=== PATIENT | male | born 1935 | race Caucasian/White ===

== ENCOUNTER 2016-10-31 12:03 | Inpatient (IN) | payer OTHER ==
[~2016-10-31] VITALS: Ht 162.6 cm; Wt 73.9 kg
--- NOTE | ~2016-10-31 | HC ---
[facility] [place] [place] [address] CONSULTATION Name: GIA GUDINO Room #: 534-P ADM IN M.R.#: [id number] Admission: 10/31/16 Attend Phys: Jeffrey Crooks MD Discharge: Date of : 36 Report #: [id number] THIS REPORT FOR: //name// CC: Gideon Crooks DATE OF SERVICE: 10/31/2016 SUBJECTIVE: This is an 81-year-old male who was admitted from my podiatry office today for severe tinea infection to his right foot with secondary cellulitis and swelling. He has been seen for the last month as an outpatient. He has failed a 2-week course of oral antifungal and oral antibiotics along with topical Naftin 2% gel and Betadine daily. He presented to my podiatry office today with increased pain and swelling, in addition to moderate malodor. It was recommended the patient be admitted for IV antibiotics and further workup. He agreed with the plan and he does deny fevers and chills at this time. PHYSICAL EXAMINATION: LOWER EXTREMITY: Nonpalpable pulses. Capillary filling time within normal limits. Inspection of skin reveals thin, shiny atrophic skin. NEUROLOGIC: Protective sensation within normal limits. DERMATOLOGIC: The toenails are thickened and dystrophic, but well trimmed at this time. There is significant interdigital tinea to the right interspaces 1-4, with superficial weeping granular wounds, more at the sulcus areas with sub second being the worse. There is no probing, tracking or undermining. The area is macerated with serous drainage. There is now malodor present. No ascending cellulitis. No abscess or fluctuance. MUSCULOSKELETAL: There is pain on palpation to the area of open superficial wounds to all interspaces on the right foot. There are no other breaks in the skin in bilateral feet. There is limited ankle dorsiflexion with knee extended and mildly improved with the knee flexed. Severe collapse of arches scarlett. IMPRESSION: Severe interdigital tinea on the right foot with secondary bacterial infection, and underlying PVD PLAN: Discussed the patient's condition in great detail. He is currently on IV antibiotics and infectious disease is on board. His x-rays obtained here at the hospital today were negative for any abnormality. His ESR and white blood cell count are within normal limits. He is afebrile. He has failed a 2-week course of oral Lamisil in the past and has been applying Naftin gel in the morning and Betadine in the evening and washing his foot gently with soap and water and drying well in the web spaces. Per the patient, he is doing that. A surgical shoe was ordered at the bedside, as he refused to wear one in the past. [address] [address] CONSULTATION Name: SHAHABGUALBERTORENATE HELLER Room #: 534-P ADM IN M.R.#: [id number] Admission: 10/31/16 Attend Phys: Jeffrey Crooks MD Discharge: Date of : 36 Report #: [id number] Vascular studies were also ordered to r/o underlying disease. I answered all his questions and concerns. <ELECTRONICALLY SIGNED> By: Eli Marie DPM 11/01/16 1309 0808 0918 Eli Marie DPM /nt
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
[~2016-10-31 12:03] MED LIST: AMLODIPINE BESY10 MG PO; ANTIVERT25 MG PO; ASPIR 8181 MG PO; BYSTOLIC 5 MG5 M1 PO; IBUPROFEN 600600 M1 PO; LISINOPRIL-HCT1 EACH PO; PRINIVIL20 M1 PO; TOPROL XL25 MG PO; TOPROL XL50 MG PO
[2016-10-31 19:22] VITALS: BP 129/64
[2016-10-31 20:10] LABS: HEMATOCRIT 46.1 % (42.0-52.0); HEMOGLOBIN 15.3 gm/dL (14.0-18.0); MCH 31.8 pg (26.0-34.0); MCHC 33.2 % (28.0-37.0); MCV 95.7 fL (80.0-100.0); RBC 4.82 mil/uL (4.50-6.00); RDW 12.4 % (10.5-14.5); WBC 5.6 thou/uL (4.0-11.0)
[2016-10-31 20:16] LABS: CALCIUM 9.2 mg/dL (8.5-10.1); CREATININE 0.9 mg/dL (0.6-1.3); POTASSIUM 3.5 mmol/L (3.5-5.1)
[2016-11-01 04:09] LABS: HEMATOCRIT 42.5 % (42.0-52.0); HEMOGLOBIN 14.1 gm/dL (14.0-18.0); MCH 31.7 pg (26.0-34.0); MCHC 33.2 % (28.0-37.0); MCV 95.6 fL (80.0-100.0); RBC 4.44 mil/uL (4.50-6.00); RDW 12.9 % (10.5-14.5); WBC 5.1 thou/uL (4.0-11.0)
[2016-11-01 04:25] VITALS: BP 130/66
[2016-11-01 04:25] LABS: CALCIUM 8.8 mg/dL (8.5-10.1); CREATININE 0.8 mg/dL (0.6-1.3); POTASSIUM 3.3 mmol/L (3.5-5.1)
[2016-11-01 07:23] VITALS: BP 149/68
[2016-11-01 16:28] VITALS: BP 150/68
[2016-11-01 19:06] VITALS: BP 160/82
[2016-11-01 19:13] LABS: INR 1.1; PROTIME 11.5 Seconds (9.3-11.4)
[2016-11-02 00:11] VITALS: BP 162/74
[2016-11-02 04:22] VITALS: BP 169/89
[2016-11-02 05:47] LABS: HEMATOCRIT 46.2 % (42.0-52.0); HEMOGLOBIN 15.1 gm/dL (14.0-18.0); MCH 31.7 pg (26.0-34.0); MCHC 32.7 % (28.0-37.0); RBC 4.76 mil/uL (4.50-6.00); RDW 12.9 % (10.5-14.5); WBC 5.5 thou/uL (4.0-11.0)
[2016-11-02 05:58] LABS: CALCIUM 8.9 mg/dL (8.5-10.1); CREATININE 0.8 mg/dL (0.6-1.3); POTASSIUM 3.6 mmol/L (3.5-5.1)
[2016-11-02 07:25] VITALS: BP 175/89
[2016-11-02 08:49] VITALS: BP 175/89
[2016-11-02 15:46] VITALS: BP 169/87
[2016-11-02 19:06] VITALS: BP 134/82
[2016-11-03 04:22] VITALS: BP 146/67
[2016-11-03 08:00] VITALS: BP 150/90
[2016-11-03 16:00] VITALS: BP 141/72
[2016-11-03 20:30] VITALS: BP 135/70
[2016-11-04 04:30] VITALS: BP 164/87
[2016-11-04 08:00] VITALS: BP 144/80
[2016-11-04 12:00] VITALS: BP 165/79
[2016-11-04 15:05] LABS: HEMATOCRIT 41.3 % (42.0-52.0); HEMOGLOBIN 13.9 gm/dL (14.0-18.0); MCH 32.1 pg (26.0-34.0); MCHC 33.6 % (28.0-37.0); MCV 95.7 fL (80.0-100.0); RBC 4.32 mil/uL (4.50-6.00); RDW 13.1 % (10.5-14.5); WBC 6.1 thou/uL (4.0-11.0)
[2016-11-04 15:14] LABS: CALCIUM 8.4 mg/dL (8.5-10.1); CREATININE 0.9 mg/dL (0.6-1.3); POTASSIUM 3.4 mmol/L (3.5-5.1)
[2016-11-04 16:00] VITALS: BP 138/50
[2016-11-04 20:45] VITALS: BP 141/59
[2016-11-05 03:30] VITALS: BP 143/93
[2016-11-05 05:49] LABS: HEMATOCRIT 39.9 % (42.0-52.0); HEMOGLOBIN 12.9 gm/dL (14.0-18.0); MCH 31.5 pg (26.0-34.0); MCHC 32.5 % (28.0-37.0); MCV 97.1 fL (80.0-100.0); RBC 4.11 mil/uL (4.50-6.00); RDW 12.8 % (10.5-14.5); WBC 6.4 thou/uL (4.0-11.0)
[2016-11-05 06:10] LABS: CALCIUM 8.1 mg/dL (8.5-10.1); CREATININE 0.7 mg/dL (0.6-1.3); POTASSIUM 3.3 mmol/L (3.5-5.1)
[2016-11-05 08:58] VITALS: BP 163/78
[2016-11-05 12:44] VITALS: BP 135/70
[2016-11-05 17:16] VITALS: BP 147/71
[2016-11-05 20:20] VITALS: BP 147/71
[2016-11-06] VITALS (7 sets, daily range): BP systolic 117–152; BP diastolic 54–79
[2016-11-06] MEDS ORDERED: CIPRO250 M1 PO (13:32)
[2016-11-06] MEDS ORDERED: FLAGYL500 MG PO (13:33)
[2016-11-06] MEDS ORDERED: VANCOMYCIN100 MG/ML PO (13:34)
[2016-11-06] MEDS ORDERED: FLOMAX0.4 MG PO (13:34)
[2016-11-06] MEDS ORDERED: CLOPIDOGREL75 MG PO (13:34)
== END 2016-11-06 18:59 | disposition home or self-care (01) | DRG 253 ==
LOC: 5S 12:03 → 4S 11-02 17:22
PROVIDERS: Hospitalist; Radiology Diagnostic Radiology
PROC: 047M3ZZ Dilation of Right Popliteal Artery, Percutaneous Approach (ICD-10-PCS; principal; 2016-11-02)
PROC: 047K341 Dilation of Right Femoral Artery with Drug-eluting Intraluminal Device, using Drug-Coated Balloon, Percutaneous Approach (ICD-10-PCS; 2016-11-02)
DX: I70.8 Atherosclerosis of other arteries (principal); L03.115 Cellulitis of right lower limb; A04.7 Enterocolitis due to Clostridium difficile; B35.3 Tinea pedis; Z96.651 Presence of right artificial knee joint; Z96.641 Presence of right artificial hip joint; I10 Essential (primary) hypertension; M19.90 Unspecified osteoarthritis, unspecified site; B35.8 Other dermatophytoses; Z79.899 Other long term (current) drug therapy; Z79.82 Long term (current) use of aspirin; Z82.49 Family history of ischemic heart disease and other diseases of the circulatory system; Z80.9 Family history of malignant neoplasm, unspecified; Z79.2 Long term (current) use of antibiotics
CPT/HCPCS: 10100; 10785

== ENCOUNTER 2017-10-21 16:15 | Emergency (ER) | payer OTHER ==
[~2017-10-21] VITALS: Ht 167.6 cm; Wt 72.6 kg
[~2017-10-21 16:15] MED LIST changes: +CIPRO250 M1 PO; +CLOPIDOGREL75 MG PO; +FLAGYL500 MG PO; +FLOMAX0.4 MG PO; +VANCOMYCIN100 MG/ML PO
[2017-10-21] MEDS ORDERED: LIPITOR10 MG PO (16:23)
[2017-10-21] MEDS ORDERED: VALIUM5 MG PO (16:47)
[2017-10-21] MEDS ORDERED: NAPROSYN500 MG PO (16:47)
[2017-10-21] MEDS ORDERED: LIDODERM1 EACH TRANSDERM (17:05)
== END 2017-10-21 17:43 | disposition home or self-care (01) ==
LOC: ER 16:15
DX: M43.6 Torticollis (principal); M54.2 Cervicalgia; I10 Essential (primary) hypertension; M19.90 Unspecified osteoarthritis, unspecified site; Z98.890 Other specified postprocedural states

== ENCOUNTER → 2018-08-19 | Outpatient (CLI) | payer OTHER ==
[~2018-08-19] MED LIST changes: +ACCUPRIL40 MG PO; +AMBIEN 5 MG TABL5 MG PO; +BISACODYL SUPP10 MG RECTAL; +DEXAMETHASO0.1 MG/M1 IV PUSH; +DOCUSATE SENNA PO; +DOCUSOL PLUS M1 EACH RECTAL; +FINASTERIDE5 MG PO; +HYDRALAZINE 10M10 MG PO; +HYDROCODONE-AP1 EAC6 PO; +LIDODERM1 EACH TRANSDERM; +LIPITOR10 MG PO; +LORAZEPAM 22 MG/1 ML IV PUSH; +MAALOX MAXIMUM355 ML PO; +MILK OF MA2400 MG/10 PO; +MIRALAX17 GM PO; +NAPROSYN500 MG PO; +NITROSTAT0.4 MG SUBLING; +ONDANSETRON HCL4 M1 IV PUSH; +TYLENOL325 MG PO; +VALIUM5 MG PO
== END ==
LOC: HYPER 08-13 16:41
DX: L89.153 Pressure ulcer of sacral region, stage 3 (principal); S81.802A Unspecified open wound, left lower leg, initial encounter; E78.5 Hyperlipidemia, unspecified; E78.00 Pure hypercholesterolemia, unspecified; I87.2 Venous insufficiency (chronic) (peripheral); I73.9 Peripheral vascular disease, unspecified; I10 Essential (primary) hypertension; G47.33 Obstructive sleep apnea (adult) (pediatric); G82.20 Paraplegia, unspecified; M48.00 Spinal stenosis, site unspecified; M19.90 Unspecified osteoarthritis, unspecified site; Z86.718 Personal history of other venous thrombosis and embolism; Z98.49 Cataract extraction status, unspecified eye; Z96.698 Presence of other orthopedic joint implants; Z86.73 Personal history of transient ischemic attack (TIA), and cerebral infarction without residual deficits; X58.XXXA Exposure to other specified factors, initial encounter; Y93.89 Activity, other specified; Y92.89 Other specified places as the place of occurrence of the external cause; Y99.8 Other external cause status

== ENCOUNTER 2018-09-02 16:01 | Inpatient (IN) | payer OTHER ==
[~2018-09-02] VITALS: Ht 165.1 cm; Wt 77.1 kg
--- NOTE | ~2018-09-02 | 2DMMODE ---
[facility] [place] [address] 2 D/M-MODE ECHOCARDIOGRAM Name: SHAHABGIA HELLER Room #: 426-P ADM IN M.R.#: [id number] Admission: 09/02/18 Attend Phys: Nisha Bustillo Discharge: Date of : 36 Date of Service: 09/08/18 1528 Report #: [id number] THIS REPORT FOR: //name// APPROVED REPORT Study performed: 09/08/2018 14:41:56 EXAM: Comprehensive 2D, Doppler, and color-flow Echocardiogram Patient Location: Bedside Room #: 426 Status: routine BSA: 1.85 HR: 70 bpm BP: 141/63 mmHg Rhythm: NSR Other Information Study Quality: Adequate Indications Leg edema. Hx: CAD, PAD, tachycardia, CVA, HTN, DM. 2D Dimensions RVDd: 33.61 mm IVSd: 10.68 (7-11mm) LVOT Diam: 20.68 (18-24mm) LVDd: 43.74 mm PWd: 10.94 (7-11mm) LVDs: 28.44 (25-40mm) Aortic Root: 32.63 mm Volumes Left Atrial Volume (Systole) Single Plane 4CH: 54.66 mL Single Plane 2CH: 57.96 mL LA ESV Index: 32.00 mL/m2 Aortic Valve AoV Peak Josh.: 2.02 m/s AO Peak Gr.: 16.28 mmHg LVOT Max P.99 mmHg LVOT Max V: 1.50 m/s IVETH Vmax: 2.50 cm2 Mitral Valve E/A Ratio: 0.7 MV Decel. Time: 224.71 ms MV E Max Josh.: 0.89 m/s [facility] [place] [address] 2 D/M-MODE ECHOCARDIOGRAM Name: SHAHABGIA ROCIADA Room #: 426-[facility] IN .R.#: [id number] Admission: 09/02/18 Attend Phys: Nisha Bustillo Discharge: Date of : 36 Date of Service: 09/08/18 1528 Report #: [id number] MV A Josh.: 1.23 m/s MV PHT: 65.16 ms IVRT: 69.20 ms Pulmonary Valve PV Peak Josh.: 1.08 m/s PV Peak Gr.: 4.63 mmHg Pulmonary Vein P Vein S: 0.81 m/s P Vein A: 0.44 m/s P Vein D: 0.53 m/s P Vein A Dur.: 138.4 msec P Vein S/D Ratio: 1.53 Tricuspid Valve TR Peak Josh.: 3.40 m/s RAP Estimate: 5.00 mmHg TR Peak Gr.: 46.25 mmHg Left Ventricle The left ventricle is normal size. There is normal LV segmental wall motion. Borderline concentric left ventricular hypertrophy. Left ventricular systolic function is normal. LVEF is 60-65%. Mild diastolic dysfunction is present (impaired relaxation pattern). Right Ventricle The right ventricle is normal size. The right ventricular systolic function is normal. Atria The left atrium size is normal. The right atrium size is normal. Aortic Valve Aortic valve leaflets are mildly thickened and calcified. Trace aortic regurgitation. There is no aortic valvular stenosis. Mitral Valve Mitral valve leaflets are mildly thickened. Mild to moderate mitral annular calcification. Trace to mild mitral regurgitation. No evidence of mitral valve stenosis. Tricuspid Valve The tricuspid valve is normal in structure. Mild tricuspid regurgitation. Estimated PAP is 50-55mmHg. Pulmonic Valve Pulmonic valve is not well visualized. Trace pulmonic [address] [address] 2 D/M-MODE ECHOCARDIOGRAM Name: SHAHABGUALBERTORENATE HELLER Room #: 426-P [facility] IN M.R.#: [id number] Admission: 09/02/18 Attend Phys: Nisha Bustillo Discharge: Date of : 36 Date of Service: 09/08/18 1528 Report #: [id number] regurgitation. Great Vessels The aortic root is normal in size. Ascending aorta is not well visualized. IVC is normal in size and collapses >50% with inspiration. Pericardium There is no pericardial effusion. <Conclusion> The left ventricle is normal size. Left ventricular systolic function is normal. Mild diastolic dysfunction is present (impaired relaxation pattern). The right ventricle is normal size. The left atrium size is normal. Aortic valve leaflets are mildly thickened and calcified. Trace aortic regurgitation. Trace to mild mitral regurgitation. Mild tricuspid regurgitation. Estimated PAP is 50-55mmHg. There is no pericardial effusion. <ELECTRONICALLY SIGNED> By: Xu Daniels MD 09/08/18 1528 1528 1528 Xu Daniels MD /INF
--- NOTE | ~2018-09-02 | PATH ---
[facility] [address] [place] [address] PATHOLOGY RPT PROCEDURE Name: GIA CHRISTIAN Room #: 426-P ADM IN M.R.#: [id number] Admission: 09/02/18 Date of : 36 Discharge: Report #: [id number] Path Case #: [id number] [facility] Accession Number: [id number] . 01 Material submitted: . PART A: SACRAL TISSUE PART B: DEEP SACRAL TISSUE . 01 Clinical history: . Sacral wound. . 02 Diagnosis: A. Sacral tissue, debridement: - Ulceration, gangrenous necrosis and marked acute inflammation, consistent with wound. . B. Deep sacral tissue, debridement: - Fragments of bone and fibrous tissue with acute inflammation, consistent with wound. . (IUV:mml; 09/08/18) QLM/09/08/2018 . 02 Electronically signed: . Elly Monsivais MD, Pathologist NPI- [id number] . 01 Gross description: . A. Received in formalin labeled "Gia Christian, sacral tissue" is a chu-white irregular portion of skin and underlying yellow-chu lobulated fibroadipose tissue which measures 7.7 x 6.7 x 1.6 cm. The skin surface displays a ellis-chu ulcerated lesion measuring 7.2 x 5.2 cm. Upon sectioning, the lesion has a greatest dimension of 1.7 cm, and extends to the deep surface. A lifeline representatives section is submitted in cassette A1. . B. Received in formalin labeled "Gino, Gia, deep sacral tissue" is a 2.6 x 1.8 x 0.6 cm aggregate of red-brown hemorrhagic soft tissue fragments. The specimen is submitted entirely in cassette B1. ([facility]; 09/07/2018) SY/SY . 02 Pathologist provided ICD-10: L89.159, I96 . 02 CPT . 295594, 949581 Specimen Comment: A courtesy [place] [address] PATHOLOGY RPT PROCEDURE Name: GIA CHRISTIAN ROANOKE Room #: 426-P [facility] IN M.R.#: [id number] Admission: 09/02/18 Date of : 36 Discharge: Report #: [id number] Path Case #: [id number] Specimen Comment: [phone], , , . Specimen Comment: Report sent to ,DR LEIVA,DR DALAL Specimen Comment: DR MANCINI Specimen Comment: A duplicate report has been generated due to demographic updates. Performed at: [address], [place] [id number] MD Serge Garza MD Phone: [phone] Performed at: [address] [id number] MD Elly Monsivais MD Phone: [phone]
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
--- NOTE | ~2018-09-02 | HC ---
[facility] [place] [address] CONSULTATION Name: GIA GUDINO Room #: 426-P ADM IN M.R.#: [id number] Admission: 09/02/18 Attend Phys: Nisha Hernandez Discharge: Date of : 36 Report #: [id number] THIS REPORT FOR: //name// CC: Nisha Ignacio Sam Camaras DATE OF SERVICE: 09/03/2018 CHIEF COMPLAINT: Sacral ulcer and left lower extremity ulceration. HISTORY OF PRESENT ILLNESS: This is an 82-year-old black male patient who is admitted to the hospital from the wound clinic with worsening gluteal ulceration as well as left lower extremity ulceration. The patient has recent paraplegia secondary to a previous spinal stroke. The patient's is very interested in having him transferred at some point with [facility] in [place], [place]. The patient denies pain at this time. PAST MEDICAL HISTORY: Positive for hypertension, right knee replacement, left hip replacement, right foot surgical repair, left radius repair, arthritis, peripheral arterial disease. FAMILY HISTORY: Positive for hypertension and cancer. SOCIAL HISTORY: Negative for alcohol, tobacco or drug use. MEDICATIONS: Include Flomax, Apresoline, Nitrostat, Topral XL, Accupril, aspirin, [place], Tylenol, Ativan, Ambien, Dulcolax suppositories, MiraLax, ondansetron. ALLERGIES: None. REVIEW OF SYSTEMS: CONSTITUTIONAL: Denies fever, chills or weight loss. NEUROLOGICAL: The patient has functional paraplegia following previous spinal stroke. ENT: The patient denies earache, nasal drainage or sore throat. EYES: The patient denies visual changes, redness or drainage. PULMONARY: No cough, shortness of breath. GASTROINTESTINAL: The patient denies nausea, vomiting, diarrhea or abdominal pain. CARDIOVASCULAR: The patient denies chest pain, palpitations, or diaphoresis. ORTHOPEDIC: The patient does have ulceration of his left leg. He also has sacral ulceration. Other systems in the 14-point review of systems are negative. [facility] [address] [place] [address] CONSULTATION Name: SHAHABGUALBERTORENATE HELLER Room #: 426-P [facility] IN M.R.#: [id number] Admission: 09/02/18 Attend Phys: Nisha Hernandez Discharge: Date of : 36 Report #: [id number] PHYSICAL EXAMINATION: VITAL SIGNS: At this time include pulse 73, respiration 16, blood pressure 141/60, temperature 98.1. GENERAL: This is a chronically ill-appearing male patient who appears to be in no distress. HEENT: Head is normocephalic. Nose and throat clear. NECK: Supple. LUNGS: Clear. HEART: Regular rate and rhythm. ABDOMEN: Soft, bowel sounds present. EXTREMITIES: Examination of the sacral region demonstrates an unstageable pressure ulcer in the sacral region, is not overtly infected. There is moderate fibrinous material and a little bit eschar present. No exposed deep structures noted at this time. Lower extremities demonstrate a circular ulceration of the left leg, lateral lower leg with dry stable eschar. Distal pulses are difficult to palpate. NEUROLOGIC: The patient is alert, does move his upper extremities, is not able to move lower extremities. LABORATORY DATA: Sodium 143, potassium 3.7, chloride 103, CO2 35, BUN 35, creatinine 1.1, glucose 109, total protein 4.9, albumin is 1.7. White blood cell count is 8.7 with hemoglobin of 9.9. CLINICAL IMPRESSION: 1. Unstageable pressure ulcer of the sacral gluteal region. 2. 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 3. Severe peripheral arterial disease. 4. Moderate protein calorie malnutrition. Prealbumin is 1.7. The patient's albumin is 1.7. PLAN: The patient will need surgical debridement of the sacrum. We will consult Surgery for this. We will recommend Betadine and adhesive film to the left lower leg. We will consult Interventional Radiology for possible percutaneous intervention and left lower extremity occlusive disease. We will need to maximize his nutrition to maximize wound healing. We will discuss with case management, possible referral to [facility] in [place], [place]. I appreciate being asked to see him in consultation. <ELECTRONICALLY SIGNED> By: Peng Bailey MD 09/10/18 0816 1821 [id number] Peng Bailey MD /nt
--- NOTE | ~2018-09-02 | HC ---
[facility] [place] [address] CONSULTATION Name: GIA GUDINO Room #: 426-P ADM IN M.R.#: [id number] Admission: 09/02/18 Attend Phys: Nisha Hernandez Discharge: Date of : 36 Report #: [id number] THIS REPORT FOR: //name// CC: Nisha Chase DATE OF SERVICE: 09/03/2018 TYPE OF REPORT: Infectious diseases consultation. REASON FOR CONSULTATION: I was asked to evaluate concerning sacral wound infection. HISTORY OF PRESENT ILLNESS: The patient is an 82-year old with underlying hypertension, peripheral vascular disease and spinal stenosis; who was seen back in May with acute myelitis, felt related to ischemia. He has remained paraplegic. He has a neurogenic bladder. He has been incontinent. Has followed up with Urology but still has not solved the issue. He has been hospitalized and then sent to rehabilitation. He did get home with his about a month ago. It is noted that he had a small wound to his sacrum during his rehabilitation stay. This acutely worsened over the last several weeks.he also developed left posterior calf with failure to improve. Evaluation in the wound care center noted extensive wounds, unable to be managed in the outpatient clinic and was hospitalized. No fever, chills or sweats. A small amount of drainage has been noted. He is incontinent of bladder and bowel. Has had no abdominal pain or pelvic pain. The patient was a poor historian, but his was able to fill in the details. REVIEW OF SYSTEMS: CONSTITUTIONAL: Notes no constitutional issues. SKIN: No other rash noted. HEENT AND NECK: No adenopathy. No change in vision. No change in hearing. PULMONARY: Negative. CARDIOVASCULAR: Negative. GASTROINTESTINAL: As above. GENITOURINARY: As above. MUSCULOSKELETAL: Unremarkable. NEUROLOGICAL: As above. PSYCHIATRIC: Unremarkable. ALLERGIES: None. MEDICATIONS: As noted on his DEC, now including vancomycin and meropenem. [facility] [address] [place] [address] CONSULTATION Name: GIA GUDINO Room #: [address] [place] [address] IN M.R.#: [id number] Admission: 09/02/18 Attend Phys: Nisha Hernandez Discharge: Date of : 36 Report #: [id number] FAMILY HISTORY: Cancer and hypertension. SOCIAL HISTORY: Nonsmoker. No significant alcohol intake. PAST MEDICAL HISTORY: Coronary artery disease, hypertension, peripheral vascular disease, venous insufficiency, right total knee arthroplasty, right ankle surgery, right total hip arthroplasty, left radius ORIF and degenerative arthritis. PHYSICAL EXAMINATION: GENERAL: The patient was afebrile and hemodynamically stable. He was alert, cooperative and appeared his stated age. HEENT: No conjunctivitis or scleral icterus. Mouth without mucositis or lesion. NECK: Supple with no thyromegaly, mass or JVD. SKIN: Without rash, otherwise, with an extensive sacral wound with fibrillation necrosis identified. Small amount of drainage. Some surrounding erythema. No definite fluctuance.wound also involving the posterior left calf. LYMPHATIC: No palpable adenopathy. LUNGS: Clear anterior posteriorly with no adventitial sounds. HEART: Regular, without murmur, gallop or rub. ABDOMEN: Soft and nontender. No hepatosplenomegaly or mass. GENITOURINARY: External genitalia unremarkable with no mass or lesion. He has an indwelling Barrera catheter. RECTAL: Not performed. EXTREMITIES: No peripheral edema. He had no cyanosis. BACK: No spinal tenderness or CVA tenderness. NEUROLOGICAL: Cranial nerves intact. Deep tendon reflexes were absent in the lower extremities. He was flaccid in the lower extremities. LABORATORY STUDIES: Hemoglobin 12.6; WBC 9.4 and platelet count 209,000. Sodium 143, potassium 3.7, bicarbonate 35 and creatinine 1.1. Lactate 1.3. Blood cultures are pending. IMPRESSION: 1. Paraplegic with sacral and calf wound and subsequent infection. 2. Paraplegia was secondary to ischemic insult to the spine, 3. Underlying hypertension. 4. Neurogenic bowel and bladder. RECOMMENDATION: Continue indwelling Barrera catheter to control his urine flow. Continue with wound care. We will need surgical debridement to his sacrum. At that time, we would obtain tissue cultures. We will continue IV antibiotic therapy pending such. arterial studies, angiogram to further evaluate the lower extremities. Continue offloading. MRSA screen. Depending upon the [address] [address] CONSULTATION Name: SHAHABGIA ARRON Room #: 426-P [facility] IN M.R.#: [id number] Admission: 09/02/18 Attend Phys: Nisha Hernandez Discharge: Date of : 36 Report #: [id number] extent of his debridement, may need further imaging of his pelvis. I have discussed the case with the patient's at the bedside. <ELECTRONICALLY SIGNED> By: Jin Hensley MD 09/04/18 2319 1603 2326 Jin Hensley MD /nt
--- NOTE | ~2018-09-02 | CATHLAB ---
[facility] [place] [address] INVASIVE PROCEDURE REPORT Name: GIA GUDINO Room #: 426-P ADM IN .R.#: [id number] Admission: 09/02/18 Attend Phys: Nisha Bustillo Discharge: Date of : 36 Date of Service: 09/04/18 1658 Report #: [id number] THIS REPORT FOR: //name// APPROVED REPORT Study performed: 09/04/2018 15:17:33 Patient Details The patient is a 82 year-old male Event Personnel CHELSY HARRIS MD, MERI ROSARIO RN, SHAHAB STRICKLAND Procedures Performed Left Heart Cath w/or w/o Coronaries [id number] [facility] [address] Initial Mod Sed Same Phys/QHP Gr5y [id number] 36402 Mod Sed Same Phys/QHP Ea [id number] Indication Arrhythmia, Dyspnea Risk Factors Peripheral Vascular Disease, Physical Activity, Hypertension Procedure Narrative A 6F sheath was inserted into the RFA. Coronary angiography was performed using coronary diagnostic catheters. The right coronary system was accessed and visualized with a 3 DRC catheter. The left coronary system was accessed and visualized with a JL 4 catheter. The left ventricle was accessed and visualized with a JR4 catheter. Pre-demployment femoral angiogram was performed . Closure device was deployed with a 6F Fr MYNX. The patient tolerated the procedure well and there were no complications associated with the procedure. There was no hematoma. Intraoperative Conscious Sedation Fentanyl mcg Versed mg Fluoro Time: 4.26 minutes Dose: DAP 3834.48 cGycm2 427 mGy Contrast Type and Amount: OMNI 35ML Coronary Angiography [place] [address] [place] [address] INVASIVE PROCEDURE REPORT Name: GIA GUDINO Room #: 426-P [facility] IN .R.#: [id number] Admission: 09/02/18 Attend Phys: Nisha Bustillo Discharge: Date of : 36 Date of Service: 09/04/18 1658 Report #: [id number] The patient's coronary anatomy is co- dominant. Diagnostic Cath Left Main patent vessel, with no flow-limiting lesions. LAD This is a moderate size caliber vessel, traveling down the anterior wall and wrapping around the apex. There is a mild to moderate stenosis in the mid segment, 40%. Diagonal 1 Patent vessel, with no flow-limiting lesions. Circumflex Codominant vessel, with no flow-limiting lesions. OM1 Patent vessel, with no flow-limiting lesions. OM2 There is a moderate stenosis in the proximal segment, 50%. Right Coronary There is mild diffuse disease in the mid segment, 30%. R PDA Patent vessel, with no flow-limiting lesions. Left Ventriculography Left Ventriculography was not performed. An LVEDP was measured and there is no gradient across the outflow tract. Hemodynamics The aortic pressure is 152/65 mmHg with a mean of 92 mmHg. The left ventricular pressure is 139/2 mmHg with a mean of mmHg. The left ventricular end diastolic pressure is 28 mmHg. PCI Technique Lesion Percutaneous coronary intervention was performed on the Unspecified. Conclusion 1. Mild to moderate coronary artery disease. 2. Codominant system. 3. Recommend aggressive risk factor management. <ELECTRONICALLY SIGNED> By: Chelsy Harris MD 09/04/188 57 57 Chelsy Harris MD /INF
[2018-09-02 16:25] VITALS: BP 114/55
[2018-09-02 17:34] LABS: ABSOLUTE NEUTROPHILS 5.9 thou/uL (1.4-8.2); BASOPHILS 1.1 % (0.0-2.0); EOSINOPHILS 5.1 % (0.0-3.0); HEMATOCRIT 37.5 % (42.0-52.0); HEMOGLOBIN 12.6 gm/dL (14.0-18.0); LYMPHOCYTES 19.9 % (24.0-44.0); MCH 30.7 pg (26.0-34.0); MCHC 33.7 g/dL (28.0-37.0); MCV 91.1 fL (80.0-100.0); MONOCYTES 11.6 % (1.0-8.0); PLATELET COUNT 209 thou/uL (150-400); POLYS 62.3 % (36.0-66.0); RBC 4.11 mil/uL (4.50-6.00); RDW 15.2 % (10.5-14.5); WBC 9.4 thou/uL (4.0-11.0)
[2018-09-02 17:43] LABS: CALCIUM 9.7 mg/dL (8.5-10.1); CREATININE 1.1 mg/dL (0.7-1.3); POTASSIUM 3.7 mmol/L (3.5-5.1)
[2018-09-02 18:24] VITALS: BP 121/62
[2018-09-02 19:16] VITALS: BP 132/80
[2018-09-02 19:44] LABS: LARGE PLATELETS FEW
[2018-09-02 19:45] VITALS: BP 132/59
[2018-09-03 04:30] VITALS: BP 100/46
[2018-09-03 19:49] VITALS: BP 115/39
[2018-09-04 05:37] VITALS: BP 131/65
[2018-09-04 07:50] VITALS: BP 107/48
[2018-09-04 11:33] LABS: CREATININE 0.9 mg/dL (0.7-1.3); POTASSIUM 3.9 mmol/L (3.5-5.1)
[2018-09-04 13:08] VITALS: BP 107/48
[2018-09-04 16:47] VITALS: BP 135/59
[2018-09-04 20:00] VITALS: BP 117/50
[2018-09-05] VITALS (8 sets, daily range): BP systolic 87–120; BP diastolic 44–55
[2018-09-05 05:09] LABS: HEMATOCRIT 30.1 % (42.0-52.0); MCH 30.3 pg (26.0-34.0); MCHC 33.1 g/dL (28.0-37.0); MCV 91.8 fL (80.0-100.0); RBC 3.28 mil/uL (4.50-6.00); RDW 15.1 % (10.5-14.5); WBC 8.7 thou/uL (4.0-11.0)
[2018-09-05 05:10] LABS: HEMOGLOBIN 9.9 gm/dL (14.0-18.0)
[2018-09-05 05:22] LABS: CALCIUM 8.5 mg/dL (8.5-10.1); CREATININE 0.8 mg/dL (0.7-1.3); POTASSIUM 4.1 mmol/L (3.5-5.1)
[2018-09-05 06:00] LABS: FOLIC ACID 15.5 ng/mL (8.6-58.9)
[2018-09-05 09:40] LABS: CHOLESTEROL 108 mg/dL (<200); HDL CHOLESTEROL 31 mg/dL (>40); LDL CHOLESTEROL 68 mg/dL (<100); TC:HDL 3.5 Ratio (Not establshd); TRIGLYCERIDE 46 mg/dL (<150); VLDL 9 mg/dL (<40)
[2018-09-05 19:08] LABS: HEMOGLOBIN 10.4 gm/dL (14.0-18.0)
[2018-09-06 05:00] VITALS: BP 89/41
[2018-09-06 07:36] VITALS: BP 101/50
[2018-09-06 19:30] VITALS: BP 99/49
[2018-09-07 03:37] VITALS: BP 134/57
[2018-09-07 07:15] VITALS: BP 148/66
[2018-09-07 17:07] VITALS: BP 134/57
[2018-09-07 20:16] VITALS: BP 149/65
[2018-09-08 03:25] VITALS: BP 146/65
[2018-09-08 06:02] LABS: HEMATOCRIT 27.2 % (42.0-52.0); HEMOGLOBIN 9.1 gm/dL (14.0-18.0); MCH 30.6 pg (26.0-34.0); MCHC 33.6 g/dL (28.0-37.0); MCV 91.2 fL (80.0-100.0); PLATELET COUNT 166 thou/uL (150-400); RBC 2.98 mil/uL (4.50-6.00); RDW 14.8 % (10.5-14.5); WBC 10.2 thou/uL (4.0-11.0)
[2018-09-08 06:18] LABS: ALBUMIN 1.7 g/dL (3.4-5.0); CALCIUM 8.6 mg/dL (8.5-10.1); CREATININE 0.8 mg/dL (0.7-1.3); POTASSIUM 3.9 mmol/L (3.5-5.1); TOTAL BILIRUBIN 0.3 mg/dL (<0.1-1.0); TOTAL PROTEIN 4.9 g/dL (6.4-8.2)
[2018-09-08 07:26] LABS: ABSOLUTE NEUTROPHILS 6.8 thou/uL (1.4-8.2)
[2018-09-08 07:52] VITALS: BP 141/63
[2018-09-08 20:59] VITALS: BP 144/64
[2018-09-08 21:16] VITALS: BP 144/64
[2018-09-09 05:16] VITALS: BP 135/62
[2018-09-09 07:45] VITALS: BP 171/91
[2018-09-09 09:54] VITALS: BP 171/91
[2018-09-09 15:30] VITALS: BP 151/78
[2018-09-09 19:20] VITALS: BP 166/80
[2018-09-10 04:00] VITALS: BP 148/82
[2018-09-10 06:46] LABS: HEMOGLOBIN 8.5 gm/dL (14.0-18.0); MCHC 34.1 g/dL (28.0-37.0); PLATELET COUNT 163 thou/uL (150-400); RBC 2.74 mil/uL (4.50-6.00); RDW 15.1 % (10.5-14.5); WBC 10.1 thou/uL (4.0-11.0)
[2018-09-10 06:56] LABS: CALCIUM 8.2 mg/dL (8.5-10.1); CREATININE 0.8 mg/dL (0.7-1.3); POTASSIUM 3.7 mmol/L (3.5-5.1)
[2018-09-10 07:37] LABS: ABSOLUTE NEUTROPHILS 6.7 thou/uL (1.4-8.2); ANISOCYTOSIS 1+
[2018-09-10 08:20] VITALS: BP 144/65
[2018-09-10 16:45] VITALS: BP 143/61
[2018-09-10 19:22] VITALS: BP 172/73
[2018-09-11 00:10] VITALS: BP 141/61
[2018-09-11 04:34] VITALS: BP 157/67
[2018-09-11 05:54] LABS: HEMATOCRIT 26.3 % (42.0-52.0); HEMOGLOBIN 8.9 gm/dL (14.0-18.0); MCH 30.8 pg (26.0-34.0); MCHC 33.8 g/dL (28.0-37.0); MCV 91.2 fL (80.0-100.0); PLATELET COUNT 167 thou/uL (150-400); RBC 2.88 mil/uL (4.50-6.00); RDW 14.9 % (10.5-14.5); WBC 10.8 thou/uL (4.0-11.0)
[2018-09-11 06:12] LABS: CALCIUM 8.4 mg/dL (8.5-10.1); CREATININE 0.6 mg/dL (0.7-1.3); POTASSIUM 3.9 mmol/L (3.5-5.1)
[2018-09-11 07:14] LABS: ABSOLUTE NEUTROPHILS 6.9 thou/uL (1.4-8.2)
[2018-09-11 08:20] VITALS: BP 144/70
[2018-09-11 17:04] VITALS: BP 153/78
[2018-09-11 20:56] VITALS: BP 145/63
[2018-09-12 05:06] VITALS: BP 152/80
[2018-09-12 08:02] VITALS: BP 163/71
[2018-09-12 16:50] VITALS: BP 137/71
[2018-09-12 19:56] VITALS: BP 159/67
[2018-09-13 05:50] LABS: HEMATOCRIT 26.1 % (42.0-52.0); HEMOGLOBIN 8.8 gm/dL (14.0-18.0); MCH 30.5 pg (26.0-34.0); MCHC 33.8 g/dL (28.0-37.0); MCV 90.3 fL (80.0-100.0); PLATELET COUNT 171 thou/uL (150-400); RBC 2.88 mil/uL (4.50-6.00); RDW 15.1 % (10.5-14.5)
[2018-09-13 06:06] LABS: CALCIUM 8.3 mg/dL (8.5-10.1); CREATININE 0.6 mg/dL (0.7-1.3); POTASSIUM 3.6 mmol/L (3.5-5.1)
[2018-09-13 06:15] VITALS: BP 154/79
[2018-09-13 07:46] VITALS: BP 151/77
[2018-09-13 09:25] LABS: ABSOLUTE NEUTROPHILS 7.5 thou/uL (1.4-8.2)
[2018-09-13 09:26] LABS: ANISOCYTOSIS 1+; BURR CELLS OCCASIONAL
[2018-09-13 15:53] VITALS: BP 138/64
[2018-09-13 20:00] VITALS: BP 129/67
[2018-09-14 04:00] VITALS: BP 113/61
[2018-09-14 07:54] VITALS: BP 140/63
[2018-09-14 13:26] LABS: CALCIUM 8.4 mg/dL (8.5-10.1); CREATININE 0.8 mg/dL (0.7-1.3); POTASSIUM 3.7 mmol/L (3.5-5.1)
[2018-09-14 16:53] VITALS: BP 143/72
[2018-09-14 19:29] VITALS: BP 131/57
[2018-09-15 04:59] VITALS: BP 136/70
[2018-09-15 07:40] LABS: HEMATOCRIT 24.1 % (42.0-52.0); HEMOGLOBIN 8.1 gm/dL (14.0-18.0); MCH 30.4 pg (26.0-34.0); MCHC 33.6 g/dL (28.0-37.0); MCV 90.5 fL (80.0-100.0); PLATELET COUNT 176 thou/uL (150-400); RBC 2.66 mil/uL (4.50-6.00); RDW 15.3 % (10.5-14.5); WBC 8.2 thou/uL (4.0-11.0)
[2018-09-15 07:50] LABS: CALCIUM 8.6 mg/dL (8.5-10.1); CREATININE 0.6 mg/dL (0.7-1.3); POTASSIUM 3.3 mmol/L (3.5-5.1)
[2018-09-15 08:29] VITALS: BP 124/57
[2018-09-15 08:49] LABS: ABSOLUTE NEUTROPHILS 4.7 thou/uL (1.4-8.2); PLATELET ESTIMATE NORMAL
[2018-09-15] MEDS ORDERED: ATORVASTATIN CA40 MG PO (16:33)
[2018-09-15] MEDS ORDERED: HYDROCODONE-AP1 EAC6 PO (16:33)
[2018-09-15] MEDS ORDERED: CLOPIDOGREL75 MG PO (16:33)
[2018-09-15] MEDS ORDERED: HYDROCHLOROTHIA25 M1 PO (16:33)
[2018-09-15] MEDS ORDERED: CEFTRIAXON1 GM/50 M1 IVPB (16:33)
[2018-09-15] MEDS ORDERED: CYCLOBENZAPRINE5 MG PO (16:33)
[2018-09-15] MEDS ORDERED: METRONIDAZOLE500 M6 IVPB (16:33)
[2018-09-15] MEDS ORDERED: CELEBREX 200 M200 M1 PO (16:33)
[2018-09-15] MEDS ORDERED: LASIX 20 MG TAB20 MG PO (16:33)
[2018-09-15 16:58] VITALS: BP 134/67
== END 2018-09-15 20:08 | DRG 853 ==
LOC: ER 16:01 → 4E 18:01 → EROBS 18:01 → 4E 19:21
PROVIDERS: Hospitalist; Nuclear Medicine Nuclear Cardiology; Nurse Practitioner Family; Nurse Practitioner Gerontology; Student in an Organized Health Care Education/Training Program
PROC: 047N3Z1 Dilation of Left Popliteal Artery using Drug-Coated Balloon, Percutaneous Approach (ICD-10-PCS; 2018-09-02)
PROC: B41D1ZZ Fluoroscopy of Aorta and Bilateral Lower Extremity Arteries using Low Osmolar Contrast (ICD-10-PCS; principal; 2018-09-04)
PROC: 4A023N7 Measurement of Cardiac Sampling and Pressure, Left Heart, Percutaneous Approach (ICD-10-PCS; principal; 2018-09-04)
PROC: B4181ZZ Fluoroscopy of Bilateral Renal Arteries using Low Osmolar Contrast (ICD-10-PCS; principal; 2018-09-04)
PROC: B2111ZZ Fluoroscopy of Multiple Coronary Arteries using Low Osmolar Contrast (ICD-10-PCS; principal; 2018-09-04)
PROC: 04CN3ZZ Extirpation of Matter from Left Popliteal Artery, Percutaneous Approach (ICD-10-PCS; principal; 2018-09-04)
PROC: 0QB10ZZ Excision of Sacrum, Open Approach (ICD-10-PCS; 2018-09-05)
PROC: 02HV33Z Insertion of Infusion Device into Superior Vena Cava, Percutaneous Approach (ICD-10-PCS; 2018-09-14)
PROC: B548ZZA Ultrasonography of Superior Vena Cava, Guidance (ICD-10-PCS; 2018-09-14)
DX: A41.9 Sepsis, unspecified organism (principal); L89.154 Pressure ulcer of sacral region, stage 4; E43 Unspecified severe protein-calorie malnutrition; G95.11 Acute infarction of spinal cord (embolic) (nonembolic); G82.20 Paraplegia, unspecified; K59.2 Neurogenic bowel, not elsewhere classified; L03.116 Cellulitis of left lower limb; L03.312 Cellulitis of back [any part except buttock and flank]; L97.229 Non-pressure chronic ulcer of left calf with unspecified severity; I73.9 Peripheral vascular disease, unspecified; L89.150 Pressure ulcer of sacral region, unstageable; L98.429 Non-pressure chronic ulcer of back with unspecified severity; I10 Essential (primary) hypertension; I95.9 Hypotension, unspecified; M48.00 Spinal stenosis, site unspecified; Z96.651 Presence of right artificial knee joint; Z96.642 Presence of left artificial hip joint; I25.10 Atherosclerotic heart disease of native coronary artery without angina pectoris; N31.9 Neuromuscular dysfunction of bladder, unspecified; M62.84 Sarcopenia; K59.00 Constipation, unspecified; G47.33 Obstructive sleep apnea (adult) (pediatric); E78.5 Hyperlipidemia, unspecified; F32.9 Major depressive disorder, single episode, unspecified; M13.811 Other specified arthritis, right shoulder; N40.0 Benign prostatic hyperplasia without lower urinary tract symptoms; Z68.28 Body mass index [BMI] 28.0-28.9, adult; Z86.73 Personal history of transient ischemic attack (TIA), and cerebral infarction without residual deficits; Z79.82 Long term (current) use of aspirin; Z79.899 Other long term (current) drug therapy; Z82.49 Family history of ischemic heart disease and other diseases of the circulatory system; Z80.9 Family history of malignant neoplasm, unspecified
CPT/HCPCS: 10084; 27000; 50010; 50101; 50386; 50403; 52287; 56639; 57119; 57120; 57188; 57189; 57192; 62110; 62900; 70005

== ENCOUNTER → 2018-09-02 | Outpatient (CLI) | payer OTHER | LOC: HYPER 07:21 | DX: L89.153 Pressure ulcer of sacral region, stage 3 (principal); S81.802D Unspecified open wound, left lower leg, subsequent encounter; S31.103D Unspecified open wound of abdominal wall, right lower quadrant without penetration into peritoneal cavity, subsequent encounter; E78.5 Hyperlipidemia, unspecified; E78.00 Pure hypercholesterolemia, unspecified; G82.20 Paraplegia, unspecified; G47.33 Obstructive sleep apnea (adult) (pediatric); I73.9 Peripheral vascular disease, unspecified; I10 Essential (primary) hypertension; I87.2 Venous insufficiency (chronic) (peripheral); M48.00 Spinal stenosis, site unspecified; M19.90 Unspecified osteoarthritis, unspecified site; Z86.718 Personal history of other venous thrombosis and embolism; Z86.73 Personal history of transient ischemic attack (TIA), and cerebral infarction without residual deficits; X58.XXXD Exposure to other specified factors, subsequent encounter ==

== ENCOUNTER 2018-10-06 22:38 | Emergency (ER) | payer OTHER ==
[~2018-10-06] VITALS: Ht 165.1 cm; Wt 84.4 kg
--- NOTE | ~2018-10-06 | EKG ---
[address] [place] [address] ELECTROCARDIOGRAM REPORT Name: GUALBERTO GUDINORENATE ARRON Room #: DEP [facility] [id number] Admission: 10/06/18 Attend Phys: Discharge: 10/07/18 Date of : 36 Report #: [id number] THIS REPORT FOR: //name// [facility] ED Test Date: 2018-10-06 Test Time: 22:54:02 Pat Name: GIA GUDINO Department: Room: Gender: M Aircraft Dispatcher: MECHELLE MONTES DE OCA : 1935 Requested By: Cassandra Briscoe Order Number: [id number] MD: Sabino Senior Measurements Intervals [place] Rate: 72 P: 33 AK: 148 QRS: 25 QRSD: 84 T: 36 QT: 418 QTc: 458 Interpretive Statements Sinus rhythm No significant abnormality Compared to ECG 06/23/2018 22:55:24 Sinus tachycardia no longer present Electronically Signed On 10-07-2018 8:36:54 PACKAGE YARNS DRYING MACHINE OPERATOR by Sabino Senior [email or web address] <ELECTRONICALLY SIGNED> By: Sabino Senior MD, [facility] 10/07/18 0836 2254 2254 Sabino Senior MD, FACC /EPI
[~2018-10-06 22:38] MED LIST changes: +ATORVASTATIN CA40 MG PO; +CEFTRIAXON1 GM/50 M1 IVPB; +CELEBREX 200 M200 M1 PO; +CYCLOBENZAPRINE5 MG PO; +HYDROCHLOROTHIA25 M1 PO; +LASIX 20 MG TAB20 MG PO; +METRONIDAZOLE500 M6 IVPB
[2018-10-06] MEDS ORDERED: CATAPRESS3 TRANSDERM (23:06)
[2018-10-06] MEDS ORDERED: DAKIN'S473 M2 TOP (23:07)
[2018-10-06] MEDS ORDERED: HYDRALAZINE 10M10 MG PO (23:08)
[2018-10-06] MEDS ORDERED: K-DUR 20 MEQ T20 MEQ PO (23:09)
[2018-10-06] MEDS ORDERED: VOLTAREN GEL 1100 G2 TOP (23:10)
[2018-10-06] MEDS ORDERED: ACCUPRIL40 MG PO (23:11)
[2018-10-07 00:57] VITALS: BP 195/92
== END 2018-10-07 00:58 | disposition home or self-care (01) ==
LOC: ER 22:38
DX: I10 Essential (primary) hypertension (principal); M19.90 Unspecified osteoarthritis, unspecified site; Z96.651 Presence of right artificial knee joint; Z96.642 Presence of left artificial hip joint

== ENCOUNTER → 2018-10-14 | Outpatient (CLI) | payer OTHER ==
[~2018-10-14] MED LIST changes: +CATAPRESS3 TRANSDERM; +DAKIN'S473 M2 TOP; +K-DUR 20 MEQ T20 MEQ PO; +VOLTAREN GEL 1100 G2 TOP
== END ==
LOC: HYPER 07:06
DX: L89.153 Pressure ulcer of sacral region, stage 3 (principal); S81.802D Unspecified open wound, left lower leg, subsequent encounter; I87.2 Venous insufficiency (chronic) (peripheral); I73.9 Peripheral vascular disease, unspecified; E78.00 Pure hypercholesterolemia, unspecified; E78.5 Hyperlipidemia, unspecified; I10 Essential (primary) hypertension; M48.00 Spinal stenosis, site unspecified; G82.20 Paraplegia, unspecified; G47.33 Obstructive sleep apnea (adult) (pediatric); M19.90 Unspecified osteoarthritis, unspecified site; Z86.718 Personal history of other venous thrombosis and embolism; Z86.73 Personal history of transient ischemic attack (TIA), and cerebral infarction without residual deficits; X58.XXXD Exposure to other specified factors, subsequent encounter

== ENCOUNTER 2018-10-26 10:53 | Inpatient (IN) | payer OTHER ==
[~2018-10-26] VITALS: Ht 165.1 cm; Wt 77.2 kg
[2018-10-26] VITALS (7 sets, daily range): BP systolic 124–138; BP diastolic 55–96
--- NOTE | ~2018-10-26 | HC ---
[facility] [place] [address] CONSULTATION Name: GIA GUDINO Room #: [facility] IN M.R.#: [id number] Admission: 10/26/18 Attend Phys: Nisha Hernandez Discharge: 10/29/18 Date of : 36 Report #: [id number] THIS REPORT FOR: //name// CC: Nisha Mcnamaramarina Luis Enriqueohunmery DATE OF SERVICE: 10/29/2018 CHIEF COMPLAINT: Sacral decubitus ulcer. HISTORY OF PRESENT ILLNESS: This is an 83-year-old black male who has been followed by us in the clinic in the past, who recently had debridement of the stage 4 decubitus ulcer and has been treated currently with wound VAC therapy at home with home health nurses. The patient came to the Emergency Department during the night for a rapid heart rate. He was diagnosed with atrial fibrillation with rapid response. The patient was admitted to the cardiac unit. Given his wound VAC, we were asked to consult and take care of the wound while he was here in the hospital. 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 CURRENT MEDICATIONS: Multiple, I reviewed the patient's medication list. DRUG ALLERGIES: None. SOCIAL HISTORY: The patient resides at home with his with home health nursing care. FAMILY HISTORY: Not pertinent to current medical condition. REVIEW OF SYSTEMS: Difficult to obtain at this time because the patient is somewhat sedated. PHYSICAL EXAMINATION: VITAL SIGNS: Temperature 36.6, pulse 72, respirations 16, BP 99/42. GENERAL: This is an alert and oriented x 1 to person, but not place or time. Black male, who is in no acute distress. HEENT: Normocephalic, atraumatic. Mucous membranes are somewhat dry. Pupils are round. Sclerae white. NECK: Shows no JVD. LUNGS: Slight diminished breath sounds heard throughout. HEART: Irregularly irregular. ABDOMEN: Soft, otherwise nontender. EXTREMITIES: The patient has minimal movement of his upper extremities and has no movement of his lower extremities. Evaluation of the sacral area reveals a [facility] [address] [place] [address] CONSULTATION Name: GIA GUDINO Room #: 211-P [facility] IN M.R.#: [id number] Admission: 10/26/18 Attend Phys: Nisha Hernandez Discharge: 10/29/18 Date of : 36 Report #: [id number] healing stage 4 decubitus ulcer without signs of any bony exposure at this time. Wound bed is nearly 100% granulating with no significant tunneling, tracking or undermining. Moderate amount of serosanguineous drainage noted. Periwound is otherwise intact, no signs of infection. Bilateral heels are intact. NEUROLOGIC: Cranial nerves 2-12 are grossly intact. The patient is paraplegic. LABORATORY DATA: White count 9.7, hemoglobin 12.9, albumin is 1.9. IMPRESSION: 1. Stage 4 sacrococcygeal decubitus ulcer present on admission, overall improving. 2. Cerebrovascular accident with paraplegia. 3. Generalized debility. 4. Severe protein-calorie malnutrition, albumin of 1.9. 5. History of atrial fibrillation with rapid ventricular response, now rate controlled. PLAN: At this time, the wound care nurse will change the wound VAC today. The patient will be planned on going home later this afternoon with home health nurses. We will have him follow up in our office next week as previously scheduled. We will continue the wound VAC to current settings, make sure we try to maximize his home-protein supplementation for healing. The patient's is well aware of making sure that he is turned on a frequent basis as well. We will once again follow up next week. We will continue all other current medications at this time. By: 0715 0759 Sam Chase MD /bartolo
[2018-10-26 11:53] LABS: HEMATOCRIT 39.1 % (42.0-52.0); HEMOGLOBIN 12.9 gm/dL (14.0-18.0); MCH 31.3 pg (26.0-34.0); MCHC 32.9 g/dL (28.0-37.0); PLATELET COUNT 251 thou/uL (150-400); RBC 4.12 mil/uL (4.50-6.00); RDW 16.8 % (10.5-14.5); WBC 9.7 thou/uL (4.0-11.0)
[2018-10-26 11:57] LABS: CALCIUM 9.4 mg/dL (8.5-10.1); CREATININE 0.8 mg/dL (0.7-1.3); POTASSIUM 3.8 mmol/L (3.5-5.1)
[2018-10-26 12:06] LABS: TROPONIN-I 0.06 ng/mL (<0.06)
[2018-10-26 12:17] LABS: PLATELET ESTIMATE NORMAL
[2018-10-26 13:55] LABS: CHOLESTEROL 92 mg/dL (<200); HDL CHOLESTEROL 42 mg/dL (>40); LDL CHOLESTEROL 44 mg/dL (<100); TC:HDL 2.2 Ratio (Not establshd); TRIGLYCERIDE 33 mg/dL (<150); VLDL 7 mg/dL (<40)
--- NOTE | 2018-10-26 20:48 | NUR ---
ARRIVED TO UNIT WITH AT BEDSIDE APPROX 1400. ON CARDIZEM GTT WHEN ADMITTED TO FLOOR FROM ER. TITRATED TO 15MG PER PROTOCOL PROVIDER NOTIFIED, CONSULTS CALLED. PATIENT CARDIZEM TITRATED TO 20MG PER PROTOCOL. HEART RATE SUSTAINING > 150'S CARDIOLOGY NOTIFIED, ORDERED OBTAINED FOR DIGOXIN. ADMINISTERED TO PATIENT & HEART RATE DECREASED TO 80'S. PATIENT REMAINS ON CARDIZEM GTT AT 20MG AT SHIFT CHANGE. PROTOCOL IN PLACE. PATIENT HAS WOUND VAC TO COCCYX FROM HOME & WOUND TO LLE. PICTURES TO BE TAKEN BY RETIREMENT PLAN SPECIALIST RN PER REPORT. PATIENT HAS CHRONIC HAWTHORNE IN PLACE FROM HOME R/T WOUNDS & IMMOBILITY. BILAT HEEL BOOTS IN PLACE FROM HOME. AOX4, DENIES PAIN OR SOA.
[2018-10-26] MEDS ORDERED: CEFDINIR300 MG PO (21:45)
[2018-10-26] MEDS ORDERED: METRONIDAZOLE500 M4 PO (21:45)
--- NOTE | 2018-10-26 22:21 | EKG ---
[address] [address] ELECTROCARDIOGRAM REPORT Name: GIA GUDINO Room #: 211-P ADM IN M.R.#: [id number] Admission: 10/26/18 Attend Phys: Nisha Hernandez Discharge: Date of : 36 Report #: [id number] THIS REPORT FOR: //name// [facility] ED Test Date: 2018-10-26 Test Time: 10:53:40 Pat Name: GIA GUDINO Department: Room: 211 Gender: M Neurology Stroke Physician: 12 : 1935 Requested By: Ella Fletcher Order Number: [id number] MD: Pollo Villalpando Measurements Intervals [place] Rate: 156 P: 67 GA: 83 QRS: 9 QRSD: 125 T: 261 QT: 317 QTc: 511 Interpretive Statements Atrial flutter with RVR Nonspecific intraventricular conduction delay Compared to ECG 10/06/2018 22:54:02 Intraventricular conduction delay now present Sinus rhythm no longer present Electronically Signed On 10-26-2018 22:21:13 MUSSEL FARMER by Pollo Villalpando [email or web address] <ELECTRONICALLY SIGNED> By: Pollo Villalpando MD 10/26/18 222 1053 1053 Pollo Villalpando MD /EPI
--- NOTE | 2018-10-26 22:22 | EKG ---
[address] [address] ELECTROCARDIOGRAM REPORT Name: GIA GUDINO Room #: 211-P ADM IN M.R.#: [id number] Admission: 10/26/18 Attend Phys: Nisha Hernandez Discharge: Date of : 36 Report #: [id number] THIS REPORT FOR: //name// [facility] ED Test Date: 2018-10-26 Test Time: 12:56:07 Pat Name: GIA GUDINO Department: Room: 211 Gender: M Painter And Body Mechanic Apprentice: EUGENIO : 1935 Requested By: Ella Fletcher Order Number: [id number] MD: Pollo Villalpando Measurements Intervals [place] Rate: 106 P: [place]: QRS: 9 QRSD: 83 T: 58 QT: 362 QTc: 481 Interpretive Statements Atrial flutter Compared to ECG 10/06/2018 22:54:02 Sinus rhythm no longer present Electronically Signed On 10-26-2018 22:22:13 BRAIDED BAND ASSEMBLER by Pollo Villalpando [email or web address] <ELECTRONICALLY SIGNED> By: Pollo Villalpando MD 10/26/18 2222 1256 125 Pollo Villalpando MD /JESSICA
[2018-10-26] MEDS ORDERED: HYDRALAZINE 2525 MG PO (22:28)
[2018-10-26] MEDS ORDERED: FLOMAX0.4 MG PO (23:57)
[2018-10-26] MEDS ORDERED: MUCINEX600 MG PO (23:59)
[2018-10-27] MEDS ORDERED: MUCINEX D TABL1 EAC1 PO (00:05)
--- NOTE | 2018-10-27 02:47 | NUR ---
ASSUMED CARE OF PATIENT AROUND 1900. PATIENT DENIES PAIN, SOA, N/V, DIZZINESS. CARDIZEM AT 20 FOR MOST OF SHIFT. RATES VARY BETWEEN 80s AND 110s WITH INCREASES INTO 120/130 WITH MOVEMENT. WOUND ON L CALF, RINSED WITH SALINE, MEDIHONEY APPLIED TO SITE, OPTIFOAM PLACED OVER WOUND PHOTO TAKEN. WOUND VAC IN PLACE ON COCCYX WHICH EXTENDS ACROSS BUTTOCK AND TO L HIP. PATIENT UNABLE TO MOVE LOWER EXTREMITIES. BOOTS IN PLACE FROM HOME TO AIDE WITH FOOT DROP AND HEEL PROTECTION. PATIENT IS PROGRESSING TOWARD GOALS, WILL CONTINUE TO MONITOR.
[2018-10-27 03:37] VITALS: BP 110/67
[2018-10-27 03:49] LABS: ALBUMIN 1.9 g/dL (3.4-5.0); CALCIUM 8.5 mg/dL (8.5-10.1); CREATININE 0.6 mg/dL (0.7-1.3); PHOSPHORUS 2.6 mg/dL (2.5-4.9); POTASSIUM 3.4 mmol/L (3.5-5.1); TROPONIN-I 0.07 ng/mL (<0.06)
[2018-10-27 07:50] VITALS: BP 121/71
--- NOTE | 2018-10-27 09:55 | NUR ---
Assess due yto notification of wounds. Familiar with pt from recent prior admit in 08/2018. Hx paraplegia, wounds to coccyx and left calf with wound vac. Wt has been stable. Pt slow to respond to questions, available and able to assist pt ordering foods he enjoys. Likes to drink Ensure, will order with all meals. Low nutrition risk.
[2018-10-27 11:22] VITALS: BP 119/70
[2018-10-27 15:24] VITALS: BP 107/61
[2018-10-27 20:59] VITALS: BP 124/72
[2018-10-28] VITALS (7 sets, daily range): BP systolic 100–116; BP diastolic 53–67
--- NOTE | 2018-10-28 07:45 | NUR ---
ASSUMED PT CARE AT 1900. VSS. PT A&0X4. ASSESSEMNTS AND MEDS GIVEN ARE DOCUMENTED. PT RESTED WELL ALL NIGHT, NO REPORTS OF PAIN OR RESPIRATORY DISTRESS. I SUCTIONED HIM TWICE THIS SHIFT; VERY MINIMAL VOLUME OF SPUTUM. PT SITS UP WELL AND TAKES PILLS WELL WITH WATER. PT IS UNABLE TO MOVE HIS RIGHT LEG AND HIS RIGHT SIDE IS SIGNIFICANTLY WEAKER THAN HIS LEFT SIDE. PT IS STABLE, STILL ON CARDIZEM DRIP AT 5ML/HR. CONTINUES TO BE SR ON THE MONITOR. CONTINUE TO FOLLOW POC
--- NOTE | 2018-10-28 14:34 | NUR ---
VSS REMAINS NSR ON MONITER. CARDIZEM GTT DC'D ON PO MEDS NOW, LUNGS CLEAR AND DIMINISHED, O2 SAT RA IS 96%. HAWTHORNE INTACT FROM HOME, CLEAR URINE. WOUND VAC INTACT SACRUM , L CALF DRESSING CHANGED. TURN EVERY 2 HOURS, BOOTS ON, APPETITE GOOD. WILL CONTINUE TO MONITER AND CARE FOR PT PER PLAN OF CARE
[2018-10-29] VITALS (8 sets, daily range): BP systolic 99–124; BP diastolic 42–78
--- NOTE | 2018-10-29 01:02 | NUR ---
ASSUMED CARE OF PT AT SHIFT CHANGE. ASSESSMENTS CHARTED. MEDS GIVEN PER MAR. PT AOX4, VSS, NO C/O PAIN. DENIES CHEST PAIN. URINE OUTPUT ADEQUATE. PT DEPENDENT, Q2 TURNS ENFORCED. FAMILY VISITED WITH PATIENT THIS PM. WILL CONTINUE TO MONITOR AND FOLLOW POC.
[2018-10-29 04:11] LABS: CALCIUM 8.2 mg/dL (8.5-10.1); CREATININE 0.7 mg/dL (0.7-1.3); POTASSIUM 3.9 mmol/L (3.5-5.1)
--- NOTE | 2018-10-29 08:03 | EKG ---
[address] [place] [facility] [address] ELECTROCARDIOGRAM REPORT Name: SHAHABGUALBERTORENATE HELLER Room #: 211-P ADM IN M.R.#: [id number] Admission: 10/26/18 Attend Phys: Nisha Hernandez Discharge: Date of : 36 Report #: [id number] THIS REPORT FOR: //name// [facility] Test Date: 2018-10-28 Test Time: 11:36:30 Pat Name: GIA GUDINO Department: Room: 211 P Gender: M Improvement Analyst: kalpana : 1935 Requested By: Pollo Villalpando Order Number: [id number] MD: Sabino Senior Measurements Intervals [place] Rate: 68 P: 11 MN: 187 QRS: 34 QRSD: 89 T: 41 QT: 416 QTc: 443 Interpretive Statements Sinus rhythm Probable left ventricular hypertrophy Compared to ECG 10/26/2018 12:56:07 Atrial flutter no longer present Electronically Signed On 10-29-2018 8:03:38 RAMP FLIGHT ATTENDANT by Sabino Senior [email or web address] <ELECTRONICALLY SIGNED> By: Sabino Senior MD, [facility] 10/29/18 0803 1136 1136 Sabino Senior MD, [facility] /EPI
[2018-10-29] MEDS ORDERED: PACERONE 200 M200 M1 PO (08:50)
[2018-10-29] MEDS ORDERED: ELIQUIS5 MG PO (08:50)
--- NOTE | 2018-10-29 10:08 | NUR ---
spoke with pt regarding discharge orders, she states that they will not leave until pt has wound vac changed, that their home health will not be out to change it until saturday, informed that this RN would call wound care and see what could be done. Message left with wound care
--- NOTE | 2018-10-29 14:16 | NUR ---
FAXED CLINICAL UPDATE TO [facility] HH SPOKE WITH ALIA IN ADM. AND SHE RECEIVED UPDATE AND THEY CAN RESUME CARE AT DISCHARGE. PT. DISCHARGING TODAY TO HOME WITH [facility] ([facility]). FAXED DC ORDERS/SUMMARY TO YELENA AND ALIA IN ADM. RECEIVED ORDERS AND WILL NOTIFY PT. OF TIME OF VISITS.
--- NOTE | 2018-10-29 14:59 | NUR ---
WOUND CONSULT: PT. WAS SEEN TODAY BY DR. DALAL AND MYSELF. PT. IS WELL KNOWN TO THE WOUND CARE TEAM. PT. HAS A VASCULAR WOUND TO HIS LEFT LATERAL LEG ALONG WITH A STAGE 4 HEALING PRESSURE ULCER TO HIS SACRUM. RECOMMENDATIONS: WOUND VAC TO HIS SACRUM MEDIHONEY TO HIS LEFT LATERAL LEG ALL CARES TO BE COMPLETED M/W/F AND PRN PT. AND STAFF NURSE WERE INSTRUCTED ON WOUND CARE.
[2018-10-29] MEDS ORDERED: MUCINEX600 MG PO (16:08)
[2018-10-29] MEDS ORDERED: CLONIDINE1 EAC1 TRANSDERM (16:08)
[2018-10-29] MEDS ORDERED: CLOPIDOGREL75 MG PO (16:08)
--- NOTE | 2018-10-29 16:14 | NUR ---
discharge instructions reviewed with pt , all questions answered, education materials given, pt to keep chronic durham, piv and patient monitor were discontinued.
--- NOTE | 2018-10-29 17:17 | NUR ---
PT READY FOR DC HOME WITH HH TODAY. DC FISHERY BIOLOGIST SET UP [facility] AND [facility]SPORT HATCH BOSS TIME 1630. SPOUSE AGREEABLE TO DC PLAN. RN UPDATED. PT'S NEW INSURANCE CARD COPY PROVIDED TO [facility] REGISTRATION.
--- NOTE | 2018-10-29 18:48 | NUR ---
STILL WAITING ON EMS TO PICK PT UP
--- NOTE | 2018-10-29 20:29 | NUR ---
ASSUMED PT CARE AT 1900. PT WAS AWAKE AND ALERT, AT BEDSIDE. GOT PT CLEANED UP AND READY FOR DISCHARGE. ALL PM MEDS GIVEN PER REQUEST. EMS ARRIVED UNIT AT ABOUT 1956. PT LEFT UNIT AT ABOUT 2014. PT DISCHARGED TO HOME WITH WOUND VAC AND HAWTHORNE. NO IV NOTED. IV DC'D DURING DAY SHIFT. PT STABLE AT DISCHARGE.
== END 2018-10-29 20:15 | disposition home health service (06) | DRG 308 ==
LOC: ER 10:53 → 2N 13:04 → EROBS 13:04 → 2N 13:49
PROVIDERS: Student in an Organized Health Care Education/Training Program; ADMIT Hospitalist
DX: I48.0 Paroxysmal atrial fibrillation (principal); L89.154 Pressure ulcer of sacral region, stage 4; E43 Unspecified severe protein-calorie malnutrition; I69.359 Hemiplegia and hemiparesis following cerebral infarction affecting unspecified side; I48.92 Unspecified atrial flutter; I10 Essential (primary) hypertension; M19.90 Unspecified osteoarthritis, unspecified site; I25.10 Atherosclerotic heart disease of native coronary artery without angina pectoris; I73.9 Peripheral vascular disease, unspecified; Z96.651 Presence of right artificial knee joint; Z96.642 Presence of left artificial hip joint; Z95.820 Peripheral vascular angioplasty status with implants and grafts; Z79.899 Other long term (current) drug therapy; Z68.28 Body mass index [BMI] 28.0-28.9, adult
CPT/HCPCS: 10081

== ENCOUNTER → 2018-11-04 | Outpatient (CLI) | payer OTHER ==
[~2018-11-04] MED LIST changes: +CEFDINIR300 MG PO; +CLONIDINE1 EAC1 TRANSDERM; +ELIQUIS5 MG PO; +HYDRALAZINE 2525 MG PO; +METRONIDAZOLE500 M4 PO; +MUCINEX D TABL1 EAC1 PO; +MUCINEX600 MG PO; +PACERONE 200 M200 M1 PO
== END ==
LOC: HYPER 06:53
DX: L89.154 Pressure ulcer of sacral region, stage 4 (principal); L97.822 Non-pressure chronic ulcer of other part of left lower leg with fat layer exposed; E78.5 Hyperlipidemia, unspecified; E78.00 Pure hypercholesterolemia, unspecified; G82.20 Paraplegia, unspecified; G47.33 Obstructive sleep apnea (adult) (pediatric); I87.2 Venous insufficiency (chronic) (peripheral); I73.9 Peripheral vascular disease, unspecified; I10 Essential (primary) hypertension; M48.00 Spinal stenosis, site unspecified; M19.90 Unspecified osteoarthritis, unspecified site; Z86.718 Personal history of other venous thrombosis and embolism; Z86.73 Personal history of transient ischemic attack (TIA), and cerebral infarction without residual deficits

== ENCOUNTER → 2018-12-08 | Outpatient (CLI) | payer OTHER | LOC: HYPER 06:52 | DX: L89.154 Pressure ulcer of sacral region, stage 4 (principal); L97.825 Non-pressure chronic ulcer of other part of left lower leg with muscle involvement without evidence of necrosis; E78.00 Pure hypercholesterolemia, unspecified; E78.5 Hyperlipidemia, unspecified; G82.20 Paraplegia, unspecified; G47.33 Obstructive sleep apnea (adult) (pediatric); I10 Essential (primary) hypertension; I87.2 Venous insufficiency (chronic) (peripheral); I73.9 Peripheral vascular disease, unspecified; M48.00 Spinal stenosis, site unspecified; M46.28 Osteomyelitis of vertebra, sacral and sacrococcygeal region; M19.90 Unspecified osteoarthritis, unspecified site; Z86.73 Personal history of transient ischemic attack (TIA), and cerebral infarction without residual deficits; Z86.718 Personal history of other venous thrombosis and embolism ==

== ENCOUNTER → 2018-12-15 | Outpatient (CLI) | payer OTHER | LOC: ULTRA 08:29 | DX: I65.23 Occlusion and stenosis of bilateral carotid arteries (principal); I73.9 Peripheral vascular disease, unspecified ==

== ENCOUNTER → 2019-01-05 | Outpatient (CLI) | payer OTHER | LOC: HYPER 06:49 | DX: L89.154 Pressure ulcer of sacral region, stage 4 (principal); L97.822 Non-pressure chronic ulcer of other part of left lower leg with fat layer exposed; E78.00 Pure hypercholesterolemia, unspecified; E78.5 Hyperlipidemia, unspecified; G47.33 Obstructive sleep apnea (adult) (pediatric); G82.20 Paraplegia, unspecified; I87.2 Venous insufficiency (chronic) (peripheral); I73.9 Peripheral vascular disease, unspecified; I10 Essential (primary) hypertension; M48.00 Spinal stenosis, site unspecified; M46.28 Osteomyelitis of vertebra, sacral and sacrococcygeal region; M19.90 Unspecified osteoarthritis, unspecified site; N31.9 Neuromuscular dysfunction of bladder, unspecified; Z86.73 Personal history of transient ischemic attack (TIA), and cerebral infarction without residual deficits; Z86.718 Personal history of other venous thrombosis and embolism ==

== ENCOUNTER → 2019-02-19 | Outpatient (CLI) | payer OTHER | LOC: HYPER 07:09 | DX: L89.154 Pressure ulcer of sacral region, stage 4 (principal); L97.822 Non-pressure chronic ulcer of other part of left lower leg with fat layer exposed; L03.115 Cellulitis of right lower limb; R60.0 Localized edema; M46.28 Osteomyelitis of vertebra, sacral and sacrococcygeal region; E78.00 Pure hypercholesterolemia, unspecified; E78.5 Hyperlipidemia, unspecified; G82.20 Paraplegia, unspecified; G47.33 Obstructive sleep apnea (adult) (pediatric); I87.2 Venous insufficiency (chronic) (peripheral); I73.9 Peripheral vascular disease, unspecified; I10 Essential (primary) hypertension; N31.9 Neuromuscular dysfunction of bladder, unspecified; M48.00 Spinal stenosis, site unspecified; M19.90 Unspecified osteoarthritis, unspecified site; Z86.73 Personal history of transient ischemic attack (TIA), and cerebral infarction without residual deficits; Z86.718 Personal history of other venous thrombosis and embolism ==

== ENCOUNTER → 2019-03-10 | Outpatient (CLI) | payer OTHER ==
[~2019-03-10] MED LIST changes: +CARDURA4 MG PO; +COLACE100 MG PO; +FISH OIL 1,001000 M2 PO; +HYDRALAZINE 5050 MG PO; +LIPITOR 20 MG T20 M1 PO; +MAXIPIME2 GM IV; +MYRBETRIQ50 MG PO; +NORVASC10 MG PO; +UNICOMPLEX M TA1 TA1 PO; +VITAMINC500 PO; +ZANAFLEX2 M1 PO; +ZESTRIL20 MG PO; +ZYVOX600 MG PO
--- NOTE | 2019-03-11 20:34 | SLE ---
[facility] [place] [address] POLYSOMNOGRAPHY STUDY Name: GIA GUDINO Room #: REG [facility]#: [id number] Admission: 03/10/19 ������������������ Attend Phys: Tristan Moseley MD Discharge: ������������������ Date of : 36 Report #: [id number] THIS REPORT FOR: //name// CC: Tristan Ignacio DATE OF SERVICE: 03/10/2019 ATTENDING PHYSICIAN: Tristan Moseley MD. The patient is 83 years old who weighs 175 pounds with a BMI of 29.1. The patient had a previous diagnosis of severe sleep apnea based on 03/2018. His AHI at that time was 77 per hour and was on CPAP at 8 cm of water. He was referred back for a split night study. During the night of study, the patient spent 512 minutes in bed and slept for 346 minutes with a low sleep efficiency of 67%. Sleep latency was 28.2 minutes with a REM latency of 431 minutes. Overall, sleep architecture showed increased stage 1 and stage 2 sleep, absent N3 sleep and reduced REM sleep. During the initial diagnostic portion of the study, the patient slept for 133 minutes. During that time, there were 2 central apneas, no mixed apneas, 6 obstructive apneas and 39 hypopneas. The patient's apnea hypopnea index was 21 per hour with a supine index of 21 per hour as well. The patient did not have REM sleep during the diagnostic portion. EKG monitoring revealed an average heart rate of 94 beats per minute. No sustained arrhythmias observed. No PLMs observed. Nocturnal oximetry study revealed an average oxygen saturation of 72% with a lowest of 58%. 102 minutes were spent in oxygen saturation less than 79% and 31 minutes with saturation of less than 69%. Patient saturations were in the 70's at the beginning of the study. The patient met the criteria for CPAP initiation. It was started at 5 cm water and titrated up to 14 cm water. The patient felt intolerant to the higher CPAP pressure. As a result, it was changed to BiPAP starting at 10/4. The pressure was increased up to 15/6 and at the final pressure, the patient slept for 58 minutes. The patient had 10 minutes of REM sleep. The patient's AHI was reduced to 11 per hour. This was the best AHI among all these pressures. The patient did have 5 hypopneas and 6 central apneas resulting in an AHI of 11.3 per hour at the final pressure. The patient had persistent nocturnal hypoxia despite elimination of respiratory events and oxygen was started at 1 liter [facility] [address] [place] [address] POLYSOMNOGRAPHY STUDY Name: GIA GUDINO ARRON Room #: REG [facility].#: [id number] Admission: 03/10/19 ������������������ Attend Phys: Tristan Moseley MD Discharge: ������������������ Date of : 36 Report #: [id number] towards the later part of the night and increased up to 3 liters. I would recommend that the patient should be placed on auto BiPAP since optimum BiPAP pressure was not achieved. IMPRESSION: 1. Moderate sleep apnea-hypopnea syndrome at an apnea hypopnea index of 21 per hour. Absence of rapid eye movement sleep during the diagnostic portion of the study can underestimate the severity of sleep apnea. 2. Severe nocturnal hypoxia secondary to combination of sleep apnea and hypoventilation. Need to rule out cardiac or pulmonary causes of nocturnal hypoxia. 3. No clinically significant periodic limb movements. RECOMMENDATIONS: 1. Although there was a significant improvement in the patient's sleep apnea with BiPAP therapy, but optimum pressure was not achieved on this split night study. I would recommend that the patient should be placed on auto BiPAP at a maximum IPAP pressure of 18 cm of water and a minimum EPAP of 8 cm of water with pressure support of 4 along with 3 liters of supplemental oxygen. 2. The patient should follow up in 4-6 weeks to assess compliance with BiPAP and to document clinical improvement along with review of the download data. 3. Weight loss is advised. 4. Avoid [employer] depressants. 5. Cautioned regarding driving until symptoms of sleep apnea resolve with the use of BiPAP. 6. The patient should also be ruled out for any cardiac or pulmonary causes of nocturnal hypoxia. ��������������������������������������������� <ELECTRONICALLY SIGNED> ���������������������������������������� By: Mario Armstrong MD ��������������������������������������������� 03/11/19 2034 [id number] Mario Armstrong MD /nt
== END ==
LOC: SLEEPLAB 19:16
DX: G47.33 Obstructive sleep apnea (adult) (pediatric) (principal); R09.02 Hypoxemia; Z68.29 Body mass index [BMI] 29.0-29.9, adult

== ENCOUNTER 2019-03-11 10:58 | Inpatient (IN) | payer OTHER ==
[~2019-03-11] VITALS: Ht 167.6 cm; Wt 81.6 kg
[~2019-03-11 10:58] MED LIST changes: -CARDURA4 MG PO; -COLACE100 MG PO; -FISH OIL 1,001000 M2 PO; -HYDRALAZINE 5050 MG PO; -LIPITOR 20 MG T20 M1 PO; -MAXIPIME2 GM IV; -MYRBETRIQ50 MG PO; -NORVASC10 MG PO; -UNICOMPLEX M TA1 TA1 PO; -VITAMINC500 PO; -ZANAFLEX2 M1 PO; -ZESTRIL20 MG PO; -ZYVOX600 MG PO
[2019-03-11 11:00] VITALS: BP 150/66
[2019-03-11 11:43] LABS: ABSOLUTE NEUTROPHILS 5.9 thou/uL (1.4-8.2); BASOPHILS 0.8 % (0.0-2.0); EOSINOPHILS 1.9 % (0.0-3.0); HEMATOCRIT 28.4 % (42.0-52.0); HEMOGLOBIN 9.4 gm/dL (14.0-18.0); LYMPHOCYTES 10.4 % (24.0-44.0); MCH 31.1 pg (26.0-34.0); MCHC 33.3 g/dL (28.0-37.0); MCV 93.5 fL (80.0-100.0); MONOCYTES 10.5 % (1.0-8.0); PLATELET COUNT 108 thou/uL (150-400); POLYS 76.4 % (36.0-66.0); RBC 3.03 mil/uL (4.50-6.00); RDW 17.5 % (10.5-14.5); WBC 7.8 thou/uL (4.0-11.0)
[2019-03-11 11:49] LABS: ANION GAP 9 mmol/L (7-16); BUN 28 mg/dL (7-18); CALCIUM 8.9 mg/dL (8.5-10.1); CHLORIDE 108 mmol/L (98-107); CO2 25 mmol/L (21-32); CREATININE 0.8 mg/dL (0.7-1.3); GLUCOSE 102 mg/dL (74-106); POTASSIUM 3.3 mmol/L (3.5-5.1); SODIUM 142 mmol/L (136-145)
[2019-03-11 11:57] LABS: APTT 32.9 Seconds (24.5-32.8); INR 1.2; PROTIME 12.6 Seconds (9.3-11.4)
[2019-03-11 11:59] LABS: BE(vivo) 2.4 mmol/L (-2 to +3); HCO3 26.3 mmol/L (22.0-26.0); PCO2 38.3 mmHg (35.0-45.0); PO2 59.4 mmHg (80.0-100.0); pH 7.455 (7.360-7.450)
[2019-03-11 11:59] LABS: ALBUMIN 2.5 g/dL (3.4-5.0); MAGNESIUM 1.9 mg/dL (1.8-2.4); SGOT 29 U/L (15-37); SGPT 32 U/L (30-65); TOTAL BILIRUBIN 0.4 mg/dL (<0.1-1.0); TOTAL PROTEIN 6.4 g/dL (6.4-8.2); TROPONIN-I <0.06 ng/mL (<0.06)
[2019-03-11] MEDS ORDERED: LASIX 20 MG TAB20 MG PO (12:06)
[2019-03-11] MEDS ORDERED: CARDURA4 MG PO (12:07)
[2019-03-11] MEDS ORDERED: NORVASC10 MG PO (12:08)
[2019-03-11] MEDS ORDERED: ZESTRIL20 MG PO (12:10)
[2019-03-11] MEDS ORDERED: PACERONE 200 M200 M1 PO ×2 (12:11→12:12)
[2019-03-11] MEDS ORDERED: ELIQUIS5 MG PO (12:12)
[2019-03-11] MEDS ORDERED: ZANAFLEX2 M1 PO (12:14)
[2019-03-11 16:14] VITALS: BP 100/66
[2019-03-11 16:32] VITALS: BP 138/71
[2019-03-11 17:57] VITALS: BP 143/81
[2019-03-11 19:45] VITALS: BP 153/76
[2019-03-11 23:36] VITALS: BP 135/76
[2019-03-12 05:14] VITALS: BP 168/80
[2019-03-12 06:26] LABS: HEMATOCRIT 28.8 % (42.0-52.0); HEMOGLOBIN 9.4 gm/dL (14.0-18.0); MCH 30.7 pg (26.0-34.0); MCHC 32.5 g/dL (28.0-37.0); MCV 94.3 fL (80.0-100.0); PLATELET COUNT 96 thou/uL (150-400); RBC 3.05 mil/uL (4.50-6.00); RDW 17.1 % (10.5-14.5); WBC 3.9 thou/uL (4.0-11.0)
[2019-03-12 06:58] LABS: ANION GAP 8 mmol/L (7-16); BUN 33 mg/dL (7-18); CALCIUM 8.9 mg/dL (8.5-10.1); CHLORIDE 110 mmol/L (98-107); CO2 28 mmol/L (21-32); CREATININE 0.9 mg/dL (0.7-1.3); GLUCOSE 130 mg/dL (74-106); POTASSIUM 3.8 mmol/L (3.5-5.1); SODIUM 146 mmol/L (136-145); TROPONIN-I <0.06 ng/mL (<0.06)
[2019-03-12 07:27] LABS: BE(vivo) -0.9 mmol/L (-2 to +3); HCO3 23.8 mmol/L (22.0-26.0); PCO2 39.7 mmHg (35.0-45.0); PO2 89.7 mmHg (80.0-100.0); pH 7.396 (7.360-7.450); sO2 96.8 % (92.0-98.0)
[2019-03-12 07:31] LABS: ABSOLUTE NEUTROPHILS 2.9 thou/uL (1.4-8.2); NUCLEATED RBCS 1 /100WBC
[2019-03-12 07:38] LABS: ANISOCYTOSIS 1+
[2019-03-12 07:56] VITALS: BP 147/79
--- NOTE | 2019-03-12 09:07 | 2DMMODE ---
[facility] [place] [address] 2 D/M-MODE ECHOCARDIOGRAM Name: SHAHABGIA GOINSPH Room #: 362-P ADM IN M.R.#: [id number] ������������� Admission: 03/11/19 ������������� Attend Phys: Khai Durand MD Discharge: ��� ������������� ��� Date of : 36 Date of Service: 03/12/19 0907 �� Report #: [id number] �������� ��������������������������������������������[id number] THIS REPORT FOR: //name// APPROVED REPORT Study performed: 03/12/2019 08:09:37 EXAM: Comprehensive 2D, Doppler, and color-flow Echocardiogram Patient Location: Bedside Room #: 362 Status: routine BSA: 1.91 HR: 74 bpm BP: 168/80 mmHg Rhythm: NSR Other Information Study Quality: Good Indications Congestive Heart Failure Hypertension/HDD hx afib 2D Dimensions RVDd: 37.83 mm IVSd: 10.91 (7-11mm) LVOT Diam: 21.01 (18-24mm) LVDd: 42.49 mm PWd: 10.76 (7-11mm) Ascending Ao: 33.01 (22-36mm) LVDs: 30.94 (25-40mm) Aortic Root: 29.44 mm IVC: 24.00 mm Volumes Left Atrial Volume (Systole) Single Plane 4CH: 93.46 mL Single Plane 2CH: 51.47 mL LA ESV Index: 40.00 mL/m2 Aortic Valve AoV Peak Josh.: 1.64 m/s AO Peak Gr.: 10.80 mmHg LVOT Max P.18 mmHg LVOT Max V: 1.34 m/s IVETH Vmax: 2.83 cm2 Mitral Valve E/A Ratio: 0.6 [facility] [employer] [place] [address] 2 D/M-MODE ECHOCARDIOGRAM Name: GIA GUDINO Room #: [address] [place] [address] [place] [facility]#: [id number] ������������� Admission: 03/11/19 ������������� Attend Phys: Khai Durand MD Discharge: ��� ������������� ��� Date of : 36 Date of Service: 03/12/19 0907 �� Report #: [id number] �������� ��������������������������������������������[id number] MV Decel. Time: 188.95 ms MV E Max Josh.: 0.89 m/s MV A Josh.: 1.50 m/s MV PHT: 54.79 ms IVRT: 114.19 ms Pulmonary Valve PV Peak Ojsh.: 0.86 m/s PV Peak Gr.: 2.99 mmHg Pulmonary Vein P Vein S: 0.72 m/s P Vein A: 0.51 m/s P Vein D: 0.41 m/s P Vein A Dur.: 93.4 msec P Vein S/D Ratio: 1.76 Tricuspid Valve TR Peak Josh.: 3.93 m/s RAP Estimate: 15.00 mmHg TR Peak Gr.: 61.64 mmHg PA Pressure: 77.00 mmHg Left Ventricle The left ventricle is normal size. There is normal LV segmental wall motion. There is normal left ventricular wall thickness. The left ventricular systolic function is normal. The left ventricular ejection fraction is within the normal range. LVEF is 60-65%. Mild diastolic dysfunction is present (impaired relaxation pattern). Right Ventricle The right ventricle is normal size. The right ventricular systolic function is normal. Atria Left atrium is mildly to moderately dilated. Right atrium is borderline dilated. Aortic Valve Mild aortic valve sclerosis. Trace aortic regurgitation. There is no aortic valvular stenosis. Mitral Valve Mild mitral annular calcification. Mild mitral regurgitation. No evidence of mitral valve stenosis. Tricuspid Valve The tricuspid valve is normal in structure. Mild tricuspid regurgitation. PAP is estimated at [address] [place] [address] 2 D/M-MODE ECHOCARDIOGRAM Name: GIA GUDINO Room #: 362-P ADM IN M.R.#: [id number] ������������� Admission: 03/11/19 ������������� Attend Phys: Khai Durand MD Discharge: ��� ������������� ��� Date of : 37 Date of Service: 03/12/19 0907 �� Report #: [id number] �������� ��������������������������������������������[id number] Pulmonic Valve The pulmonary valve is normal in structure. Trace to mild pulmonic regurgitation. Great Vessels The aortic root is normal in size. IVC is dilated and collapses <50% with inspiration. Pericardium There is no pericardial effusion. <Conclusion> The left ventricular systolic function is normal. There is normal LV segmental wall motion. LVEF is 60-65%. Mild diastolic dysfunction Left atrium is mildly to moderately dilated. Mild aortic valve sclerosis, no stenosis. Trace aortic regurgitation. Mild mitral annular calcification. Mild mitral regurgitation. Mild tricuspid regurgitation. Pulmonary artery pressure estimated at 70 mmHg. There is no pericardial effusion. ��������������������������������������������� <ELECTRONICALLY SIGNED> ���������������������������������������� By: Sabino Senior MD, [facility] ��������������������������������������������� 03/12/19906 6 6 Sabino Senior MD, FACC /INF
[2019-03-12 11:45] VITALS: BP 153/78
[2019-03-12] MEDS ORDERED: LIPITOR 20 MG T20 M1 PO (12:00)
[2019-03-12] MEDS ORDERED: MYRBETRIQ50 MG PO (12:00)
[2019-03-12] MEDS ORDERED: UNICOMPLEX M TA1 TA1 PO (12:01)
[2019-03-12] MEDS ORDERED: COLACE100 MG PO (12:01)
[2019-03-12] MEDS ORDERED: FISH OIL 1,001000 M2 PO (12:01)
[2019-03-12] MEDS ORDERED: VITAMINC500 PO (12:01)
[2019-03-12] MEDS ORDERED: HYDRALAZINE 5050 MG PO ×2 (12:02→12:03)
[2019-03-12] MEDS ORDERED: MAXIPIME2 GM IV (12:04)
[2019-03-12] MEDS ORDERED: ZYVOX600 MG PO (12:04)
[2019-03-12 16:15] VITALS: BP 141/60
--- NOTE | 2019-03-12 16:28 | EKG ---
[address] [address] ELECTROCARDIOGRAM REPORT Name: GUALBERTO GUDINORENATE HELLER Room #: 362-P ADM IN M.R.#: [id number] ������������������ Admission: 03/11/19 ������������������ Attend Phys: Khai Durand MD Discharge: ������������������ Date of : 36 Report #: [id number] ����������������������������������������������������������������� [id number] THIS REPORT FOR: //name// [facility] ED Test Date: 2019-03-11 Test Time: 11:45:06 Pat Name: GIA GUDINO Department: Room: 362 Gender: M Window Clerk: candida : 1935 Requested By: Jin Navarro Order Number: [id number] MD: Pollo Villalpando Measurements Intervals [place] Rate: 83 P: 12 MD: 156 QRS: 4 QRSD: 87 T: 118 QT: 392 QTc: 461 Interpretive Statements Sinus rhythm Probable left atrial enlargement Nonspecific T abnormalities, lateral leads Compared to ECG 10/28/2018 11:36:30 T-wave abnormality now present Electronically Signed On 03-12-2019 16:28:33 CDT by Pollo Villalpando [email or web address] ��������������������������������������������� <ELECTRONICALLY SIGNED> ���������������������������������������� By: Pollo Villalpando MD ��������������������������������������������� 03/12/19 1628 1145 1145 Pollo Villalpando MD /[facility]
[2019-03-12 19:27] VITALS: BP 147/73
[2019-03-13 03:35] VITALS: BP 158/73
[2019-03-13 07:42] VITALS: BP 158/84
[2019-03-13 12:03] VITALS: BP 157/66
[2019-03-13 16:11] VITALS: BP 155/77
[2019-03-13 20:18] VITALS: BP 166/82
[2019-03-14] VITALS (7 sets, daily range): BP systolic 136–164; BP diastolic 64–84
[2019-03-14 08:15] LABS: HEMATOCRIT 26.6 % (42.0-52.0); HEMOGLOBIN 8.7 gm/dL (14.0-18.0); MCH 30.7 pg (26.0-34.0); MCHC 32.6 g/dL (28.0-37.0); MCV 93.9 fL (80.0-100.0); RBC 2.84 mil/uL (4.50-6.00); RDW 16.9 % (10.5-14.5); WBC 6.9 thou/uL (4.0-11.0)
[2019-03-14 08:48] LABS: CALCIUM 8.7 mg/dL (8.5-10.1); CREATININE 0.6 mg/dL (0.7-1.3); POTASSIUM 3.5 mmol/L (3.5-5.1)
[2019-03-14 10:32] LABS: ABSOLUTE NEUTROPHILS 4.6 thou/uL (1.4-8.2); ANISOCYTOSIS 1+; PLATELET COUNT 85 thou/uL (150-400)
[2019-03-15 05:03] VITALS: BP 152/77
[2019-03-15 06:19] LABS: HEMATOCRIT 25.9 % (42.0-52.0); HEMOGLOBIN 8.6 gm/dL (14.0-18.0); MCH 30.7 pg (26.0-34.0); MCHC 33.1 g/dL (28.0-37.0); MCV 92.9 fL (80.0-100.0); RBC 2.78 mil/uL (4.50-6.00); RDW 16.9 % (10.5-14.5); WBC 6.2 thou/uL (4.0-11.0)
[2019-03-15 06:30] LABS: CALCIUM 8.5 mg/dL (8.5-10.1); CREATININE 0.6 mg/dL (0.7-1.3); POTASSIUM 3.1 mmol/L (3.5-5.1)
[2019-03-15 08:20] VITALS: BP 150/72
[2019-03-15 19:46] VITALS: BP 134/70
[2019-03-16 05:33] VITALS: BP 139/64
[2019-03-16 06:05] LABS: HEMATOCRIT 26.4 % (42.0-52.0); HEMOGLOBIN 8.7 gm/dL (14.0-18.0); MCH 30.8 pg (26.0-34.0); MCHC 32.8 g/dL (28.0-37.0); MCV 93.8 fL (80.0-100.0); RBC 2.81 mil/uL (4.50-6.00); RDW 16.8 % (10.5-14.5); WBC 6.5 thou/uL (4.0-11.0)
[2019-03-16 06:23] LABS: CALCIUM 8.6 mg/dL (8.5-10.1); CREATININE 0.6 mg/dL (0.7-1.3); POTASSIUM 3.5 mmol/L (3.5-5.1)
[2019-03-16 08:26] VITALS: BP 147/69
[2019-03-16 12:09] VITALS: BP 148/69
[2019-03-16 16:02] VITALS: BP 130/69
[2019-03-16 19:34] VITALS: BP 146/69
[2019-03-17 07:59] VITALS: BP 143/69
[2019-03-17 12:07] VITALS: BP 119/53
[2019-03-17 16:00] VITALS: BP 140/66
[2019-03-17 19:27] VITALS: BP 139/61
[2019-03-18 03:56] VITALS: BP 138/64
[2019-03-18 07:57] VITALS: BP 120/51
[2019-03-18 10:31] VITALS: BP 120/51
[2019-03-18 11:50] VITALS: BP 134/56
[2019-03-18] MEDS ORDERED: BIPAP MISCELL (13:04)
== END 2019-03-18 16:38 | disposition home health service (06) | DRG 177 ==
LOC: ER 10:58 → 3W 13:20 → EROBS 13:20 → 3W 16:33
PROVIDERS: Emergency Medicine; Nurse Practitioner; ADMIT Internal Medicine
PROC: 5A09357 Assistance with Respiratory Ventilation, Less than 24 Consecutive Hours, Continuous Positive Airway Pressure (ICD-10-PCS; 2019-03-11)
PROC: 02HV33Z Insertion of Infusion Device into Superior Vena Cava, Percutaneous Approach (ICD-10-PCS; principal; 2019-03-12)
PROC: 5A09357 Assistance with Respiratory Ventilation, Less than 24 Consecutive Hours, Continuous Positive Airway Pressure (ICD-10-PCS; 2019-03-12)
PROC: 5A09357 Assistance with Respiratory Ventilation, Less than 24 Consecutive Hours, Continuous Positive Airway Pressure (ICD-10-PCS; 2019-03-15)
PROC: 5A09357 Assistance with Respiratory Ventilation, Less than 24 Consecutive Hours, Continuous Positive Airway Pressure (ICD-10-PCS; 2019-03-16)
PROC: 5A09357 Assistance with Respiratory Ventilation, Less than 24 Consecutive Hours, Continuous Positive Airway Pressure (ICD-10-PCS; 2019-03-17)
DX: J69.0 Pneumonitis due to inhalation of food and vomit (principal); L89.154 Pressure ulcer of sacral region, stage 4; J96.21 Acute and chronic respiratory failure with hypoxia; G92 Toxic encephalopathy; E43 Unspecified severe protein-calorie malnutrition; I50.33 Acute on chronic diastolic (congestive) heart failure; R04.2 Hemoptysis; N39.0 Urinary tract infection, site not specified; G82.20 Paraplegia, unspecified; Z96.651 Presence of right artificial knee joint; Z96.642 Presence of left artificial hip joint; M19.90 Unspecified osteoarthritis, unspecified site; E78.5 Hyperlipidemia, unspecified; E87.6 Hypokalemia; D69.6 Thrombocytopenia, unspecified; I73.9 Peripheral vascular disease, unspecified; I11.0 Hypertensive heart disease with heart failure; G47.33 Obstructive sleep apnea (adult) (pediatric); I48.91 Unspecified atrial fibrillation; Z96.659 Presence of unspecified artificial knee joint; N31.9 Neuromuscular dysfunction of bladder, unspecified; E66.9 Obesity, unspecified; D64.9 Anemia, unspecified; I27.20 Pulmonary hypertension, unspecified; D63.1 Anemia in chronic kidney disease; Z86.73 Personal history of transient ischemic attack (TIA), and cerebral infarction without residual deficits; Z86.718 Personal history of other venous thrombosis and embolism; Z82.49 Family history of ischemic heart disease and other diseases of the circulatory system; Z68.29 Body mass index [BMI] 29.0-29.9, adult; Z95.820 Peripheral vascular angioplasty status with implants and grafts; Z79.82 Long term (current) use of aspirin; Z79.899 Other long term (current) drug therapy
CPT/HCPCS: 10879

== ENCOUNTER → 2019-03-26 | Outpatient (CLI) | payer OTHER ==
[~2019-03-26] MED LIST changes: +BIPAP MISCELL; +CARDURA4 MG PO; +COLACE100 MG PO; +FISH OIL 1,001000 M2 PO; +HYDRALAZINE 5050 MG PO; +LIPITOR 20 MG T20 M1 PO; +MAXIPIME2 GM IV; +MYRBETRIQ50 MG PO; +NORVASC10 MG PO; +UNICOMPLEX M TA1 TA1 PO; +VITAMINC500 PO; +ZANAFLEX2 M1 PO; +ZESTRIL20 MG PO; +ZYVOX600 MG PO
--- NOTE | ~2019-03-26 | HC ---
[facility] [place] [address] CONSULTATION Name: GIA GUDINO Room #: PRE [facility].#: [id number] Admission: ������������������ Attend Phys: Sam Chase MD Discharge: ������������������ Date of : 36 Report #: [id number] THIS REPORT FOR: //name// CC: Gideon Chase DATE OF SERVICE: 03/12/2019 WOUND CARE CONSULTATION: CHIEF COMPLAINT: Sacral decubitus ulcer and left lower extremity ulceration. PERSONAL PHYSICIAN: None on staff. HISTORY OF PRESENT ILLNESS: This is an 83-year-old black male who is a patient of mine for several months, who is now currently admitted to the hospital, who is seen for decreased oxygen saturations and altered mental status. While the patient is here in the hospital, we have been asked to follow him for his ulcerations. The patient's who is his primary caregiver states the ulcerations have been continuing to improve and she has no concerns with regards to the wounds at this time. 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 CURRENT MEDICATIONS: Multiple. I reviewed the patient's medication list. DRUG ALLERGIES: None. SOCIAL HISTORY: The patient resides with his who is the primary caregiver at home. Does not smoke or drink alcohol. FAMILY HISTORY: Not pertinent to current medical condition. REVIEW OF SYSTEMS: CONSTITUTIONAL: The patient denies fevers or chills. 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 EYES: No complaints. ENT: No complaints. CARDIAC: The patient denies chest pain, palpitations, peripheral edema. RESPIRATORY: The patient complains of hypoxia, on home pulse oximetry, associated with shortness of breath, but no cough or wheezes. GASTROINTESTINAL: The patient denies nausea, vomiting, abdominal pain. GENITOURINARY: The patient denies urgency or frequency. MUSCULOSKELETAL: No complaints. [facility] [address] [place] [address] CONSULTATION Name: GIA GUDINO Room #: [facility]#: [id number] Admission: ������������������ Attend Phys: Sam Chase MD Discharge: ������������������ Date of : 36 Report #: [id number] SKIN: There is chronic ulceration stage 4 in sacrococcygeal region as well as a vascular ulcer on his left lateral calf. PHYSICAL EXAMINATION: VITAL SIGNS: Stable. The patient is afebrile. GENERAL: He is alert and oriented x 3, pleasant black male who is in mild distress secondary to symptoms. HEENT: Normocephalic, atraumatic. Mucous membranes are somewhat dry. Pupils are round. Sclerae white. NECK: Supple, nontender, without JVD. LUNGS: Clear. HEART: Irregularly irregular without murmur. ABDOMEN: Soft, nontender. EXTREMITIES: The patient has movement of the upper extremities, but no spontaneous movement of lower extremities. On the left lateral aspect of the calf, there is an ulceration which is clean, granulating and markedly smaller in size in my last evaluation. There is no significant undermining or tunneling. Periwound is otherwise intact. There is minimal serous drainage noted without odor. Distal pulses are 1+ dorsalis pedis and posterior tibial. Bilateral heels are intact. On evaluation of the sacrococcygeal region, there is a stage 4 decubitus ulcer which is otherwise clean and granulating. It too is markedly smaller than my last evaluation. There is no evidence of any exposed bone at this time. There is minimal serosanguineous drainage noted without odor. Periulcer is otherwise intact with very mild maceration. There is no tunneling or undermining. NEUROLOGIC: Cranial nerves 2-12 grossly intact. The patient is paraplegic. WOUND CARE COURSE: I spoke at length with the patient and the patient's . At this time, we will put him in a low air loss mattress and will be turned every 2 hours. We will continue with collagen and sacral foam to the sacral region daily. We will use silver alginate to the left lateral calf ulcer. We will make sure we maximize the patient's oral protein supplementation given the fact that he has got a history of protein-calorie malnutrition. We will continue all his other current medications. IMPRESSION: 1. Stage 4 sacrococcygeal decubitus ulcer present on admission, overall improving. 2. Vascular ulcer in left lateral calf, present on admission, overall improving. 3. History of protein-calorie malnutrition with a previous albumin of 2.1. 4. Generalized debility. 5. Obesity. 6. History of peripheral arterial disease, status post intervention. [address] [address] CONSULTATION Name: GIA GUDINO Room #: PRE [facility] [place].#: [id number] Admission: ������������������ Attend Phys: Sam Chase MD Discharge: ������������������ Date of : 36 Report #: [id number] PLAN: Described in length as above. I appreciate the ability to consult. We will continue to follow the patient. ��������������������������������������������� ���������������������������������������� By: ��������������������������������������������� [phone] Sam Chase MD /nt
== END ==
LOC: HYPER 03-12 12:01
DX: E11.622 Type 2 diabetes mellitus with other skin ulcer (principal); L89.154 Pressure ulcer of sacral region, stage 4; L98.491 Non-pressure chronic ulcer of skin of other sites limited to breakdown of skin; E11.36 Type 2 diabetes mellitus with diabetic cataract; E11.40 Type 2 diabetes mellitus with diabetic neuropathy, unspecified; G82.20 Paraplegia, unspecified; I87.2 Venous insufficiency (chronic) (peripheral); E11.51 Type 2 diabetes mellitus with diabetic peripheral angiopathy without gangrene; I11.0 Hypertensive heart disease with heart failure; I50.9 Heart failure, unspecified; E78.5 Hyperlipidemia, unspecified; G47.33 Obstructive sleep apnea (adult) (pediatric); E78.00 Pure hypercholesterolemia, unspecified; M46.28 Osteomyelitis of vertebra, sacral and sacrococcygeal region; L03.115 Cellulitis of right lower limb; N31.9 Neuromuscular dysfunction of bladder, unspecified; M48.00 Spinal stenosis, site unspecified; M19.90 Unspecified osteoarthritis, unspecified site; I48.91 Unspecified atrial fibrillation; M06.9 Rheumatoid arthritis, unspecified; R60.0 Localized edema; F41.9 Anxiety disorder, unspecified; Z86.73 Personal history of transient ischemic attack (TIA), and cerebral infarction without residual deficits; Z86.718 Personal history of other venous thrombosis and embolism

== ENCOUNTER → 2019-04-20 | Outpatient (CLI) | payer OTHER | LOC: HYPER 06:45 | DX: E11.622 Type 2 diabetes mellitus with other skin ulcer (principal); L89.154 Pressure ulcer of sacral region, stage 4; L98.491 Non-pressure chronic ulcer of skin of other sites limited to breakdown of skin; L98.411 Non-pressure chronic ulcer of buttock limited to breakdown of skin; L89.312 Pressure ulcer of right buttock, stage 2; L97.822 Non-pressure chronic ulcer of other part of left lower leg with fat layer exposed; E11.51 Type 2 diabetes mellitus with diabetic peripheral angiopathy without gangrene; E11.40 Type 2 diabetes mellitus with diabetic neuropathy, unspecified; E11.36 Type 2 diabetes mellitus with diabetic cataract; E11.69 Type 2 diabetes mellitus with other specified complication; M86.8X8 Other osteomyelitis, other site; I87.2 Venous insufficiency (chronic) (peripheral); G47.33 Obstructive sleep apnea (adult) (pediatric); E78.00 Pure hypercholesterolemia, unspecified; M46.28 Osteomyelitis of vertebra, sacral and sacrococcygeal region; L03.115 Cellulitis of right lower limb; M19.90 Unspecified osteoarthritis, unspecified site; E78.5 Hyperlipidemia, unspecified; I11.0 Hypertensive heart disease with heart failure; I50.9 Heart failure, unspecified; I48.91 Unspecified atrial fibrillation; I48.92 Unspecified atrial flutter; M06.9 Rheumatoid arthritis, unspecified; R60.0 Localized edema; R21 Rash and other nonspecific skin eruption; G82.20 Paraplegia, unspecified; F32.9 Major depressive disorder, single episode, unspecified; Z99.81 Dependence on supplemental oxygen; Z86.73 Personal history of transient ischemic attack (TIA), and cerebral infarction without residual deficits ==

== ENCOUNTER → 2019-10-22 | Outpatient (CLI) | payer OTHER | LOC: HYPER 14:02 | DX: E11.622 Type 2 diabetes mellitus with other skin ulcer (principal); L89.154 Pressure ulcer of sacral region, stage 4; L98.491 Non-pressure chronic ulcer of skin of other sites limited to breakdown of skin; L97.822 Non-pressure chronic ulcer of other part of left lower leg with fat layer exposed; E11.40 Type 2 diabetes mellitus with diabetic neuropathy, unspecified; E11.36 Type 2 diabetes mellitus with diabetic cataract; E11.69 Type 2 diabetes mellitus with other specified complication; M46.28 Osteomyelitis of vertebra, sacral and sacrococcygeal region; E11.51 Type 2 diabetes mellitus with diabetic peripheral angiopathy without gangrene; I87.2 Venous insufficiency (chronic) (peripheral); I11.0 Hypertensive heart disease with heart failure; I50.9 Heart failure, unspecified; M48.00 Spinal stenosis, site unspecified; E78.00 Pure hypercholesterolemia, unspecified; L03.115 Cellulitis of right lower limb; N31.9 Neuromuscular dysfunction of bladder, unspecified; E46 Unspecified protein-calorie malnutrition; M19.90 Unspecified osteoarthritis, unspecified site; E78.5 Hyperlipidemia, unspecified; I48.91 Unspecified atrial fibrillation; I47.9 Paroxysmal tachycardia, unspecified; M06.9 Rheumatoid arthritis, unspecified; G82.20 Paraplegia, unspecified; G47.33 Obstructive sleep apnea (adult) (pediatric); R60.0 Localized edema; F32.9 Major depressive disorder, single episode, unspecified; F41.9 Anxiety disorder, unspecified; Z99.81 Dependence on supplemental oxygen; Z86.73 Personal history of transient ischemic attack (TIA), and cerebral infarction without residual deficits; Z86.718 Personal history of other venous thrombosis and embolism ==

== ENCOUNTER → 2020-03-22 | Outpatient (CLI) | payer OTHER | LOC: SJCVCIMAG 09:55 | DX: I70.203 Unspecified atherosclerosis of native arteries of extremities, bilateral legs (principal); I65.23 Occlusion and stenosis of bilateral carotid arteries; I87.2 Venous insufficiency (chronic) (peripheral); I25.10 Atherosclerotic heart disease of native coronary artery without angina pectoris; I10 Essential (primary) hypertension; I48.91 Unspecified atrial fibrillation; E78.00 Pure hypercholesterolemia, unspecified ==

== ENCOUNTER → 2020-11-22 | Outpatient (CLI) | payer OTHER | LOC: HYPER 11-16 13:17 | PROVIDERS: ATTEND Emergency Medicine | DX: S90.414A Abrasion, right lesser toe(s), initial encounter (principal); E11.621 Type 2 diabetes mellitus with foot ulcer; L97.511 Non-pressure chronic ulcer of other part of right foot limited to breakdown of skin; I87.2 Venous insufficiency (chronic) (peripheral); E11.40 Type 2 diabetes mellitus with diabetic neuropathy, unspecified; E11.51 Type 2 diabetes mellitus with diabetic peripheral angiopathy without gangrene; M19.90 Unspecified osteoarthritis, unspecified site; N40.0 Benign prostatic hyperplasia without lower urinary tract symptoms; H26.9 Unspecified cataract; E78.5 Hyperlipidemia, unspecified; E11.69 Type 2 diabetes mellitus with other specified complication; M46.28 Osteomyelitis of vertebra, sacral and sacrococcygeal region; I11.0 Hypertensive heart disease with heart failure; I50.9 Heart failure, unspecified; D63.8 Anemia in other chronic diseases classified elsewhere; I48.91 Unspecified atrial fibrillation; G82.20 Paraplegia, unspecified; M06.9 Rheumatoid arthritis, unspecified; M85.80 Other specified disorders of bone density and structure, unspecified site; M48.00 Spinal stenosis, site unspecified; N31.9 Neuromuscular dysfunction of bladder, unspecified; F32.9 Major depressive disorder, single episode, unspecified; F41.9 Anxiety disorder, unspecified; Z86.73 Personal history of transient ischemic attack (TIA), and cerebral infarction without residual deficits; Z86.718 Personal history of other venous thrombosis and embolism; Z86.14 Personal history of Methicillin resistant Staphylococcus aureus infection; Z99.81 Dependence on supplemental oxygen; Z96.698 Presence of other orthopedic joint implants; Z98.49 Cataract extraction status, unspecified eye; X58.XXXA Exposure to other specified factors, initial encounter; Y93.89 Activity, other specified; Y92.89 Other specified places as the place of occurrence of the external cause; Y99.8 Other external cause status ==

== ENCOUNTER → 2020-12-14 | Outpatient (CLI) | payer OTHER | LOC: HYPER 11:43 | PROVIDERS: ATTEND Emergency Medicine | DX: E11.621 Type 2 diabetes mellitus with foot ulcer (principal); L97.511 Non-pressure chronic ulcer of other part of right foot limited to breakdown of skin; S90.414D Abrasion, right lesser toe(s), subsequent encounter; I87.2 Venous insufficiency (chronic) (peripheral); E11.40 Type 2 diabetes mellitus with diabetic neuropathy, unspecified; E11.51 Type 2 diabetes mellitus with diabetic peripheral angiopathy without gangrene; E11.69 Type 2 diabetes mellitus with other specified complication; M46.28 Osteomyelitis of vertebra, sacral and sacrococcygeal region; E11.36 Type 2 diabetes mellitus with diabetic cataract; E78.5 Hyperlipidemia, unspecified; D63.8 Anemia in other chronic diseases classified elsewhere; G82.20 Paraplegia, unspecified; N31.9 Neuromuscular dysfunction of bladder, unspecified; N40.0 Benign prostatic hyperplasia without lower urinary tract symptoms; I11.0 Hypertensive heart disease with heart failure; I50.9 Heart failure, unspecified; I48.91 Unspecified atrial fibrillation; M06.9 Rheumatoid arthritis, unspecified; M85.80 Other specified disorders of bone density and structure, unspecified site; M48.00 Spinal stenosis, site unspecified; F32.9 Major depressive disorder, single episode, unspecified; F41.9 Anxiety disorder, unspecified; Z86.73 Personal history of transient ischemic attack (TIA), and cerebral infarction without residual deficits; Z86.718 Personal history of other venous thrombosis and embolism; Z86.14 Personal history of Methicillin resistant Staphylococcus aureus infection; Z99.81 Dependence on supplemental oxygen; X58.XXXD Exposure to other specified factors, subsequent encounter ==

== ENCOUNTER → 2020-12-21 | Outpatient (CLI) | payer OTHER | LOC: SJCVCIMAG 12-14 07:38 | PROVIDERS: ATTEND Emergency Medicine | DX: I70.203 Unspecified atherosclerosis of native arteries of extremities, bilateral legs (principal); M79.661 Pain in right lower leg; M79.662 Pain in left lower leg; I10 Essential (primary) hypertension; I25.10 Atherosclerotic heart disease of native coronary artery without angina pectoris; G47.30 Sleep apnea, unspecified; I48.91 Unspecified atrial fibrillation; M19.90 Unspecified osteoarthritis, unspecified site; R60.0 Localized edema; E78.00 Pure hypercholesterolemia, unspecified; Z88.1 Allergy status to other antibiotic agents; Z88.8 Allergy status to other drugs, medicaments and biological substances ==

== ENCOUNTER → 2020-12-22 | Outpatient (CLI) | payer OTHER | LOC: HYPER 12-21 16:42 | PROVIDERS: ATTEND Emergency Medicine | DX: E11.621 Type 2 diabetes mellitus with foot ulcer (principal); L97.511 Non-pressure chronic ulcer of other part of right foot limited to breakdown of skin; S90.414D Abrasion, right lesser toe(s), subsequent encounter; I87.2 Venous insufficiency (chronic) (peripheral); E11.40 Type 2 diabetes mellitus with diabetic neuropathy, unspecified; E11.51 Type 2 diabetes mellitus with diabetic peripheral angiopathy without gangrene; E11.69 Type 2 diabetes mellitus with other specified complication; M46.28 Osteomyelitis of vertebra, sacral and sacrococcygeal region; E11.36 Type 2 diabetes mellitus with diabetic cataract; E78.5 Hyperlipidemia, unspecified; D63.8 Anemia in other chronic diseases classified elsewhere; G82.20 Paraplegia, unspecified; N31.9 Neuromuscular dysfunction of bladder, unspecified; N40.0 Benign prostatic hyperplasia without lower urinary tract symptoms; I11.0 Hypertensive heart disease with heart failure; I50.9 Heart failure, unspecified; I48.91 Unspecified atrial fibrillation; M06.9 Rheumatoid arthritis, unspecified; M85.80 Other specified disorders of bone density and structure, unspecified site; M48.00 Spinal stenosis, site unspecified; F32.9 Major depressive disorder, single episode, unspecified; F41.9 Anxiety disorder, unspecified; Z86.73 Personal history of transient ischemic attack (TIA), and cerebral infarction without residual deficits; Z86.718 Personal history of other venous thrombosis and embolism; Z86.14 Personal history of Methicillin resistant Staphylococcus aureus infection; Z99.81 Dependence on supplemental oxygen; X58.XXXD Exposure to other specified factors, subsequent encounter ==

== ENCOUNTER → 2021-01-05 | Outpatient (CLI) | payer OTHER | LOC: HYPER 13:20 | PROVIDERS: ATTEND Emergency Medicine | DX: S90.414D Abrasion, right lesser toe(s), subsequent encounter (principal); E11.621 Type 2 diabetes mellitus with foot ulcer; L97.512 Non-pressure chronic ulcer of other part of right foot with fat layer exposed; I87.2 Venous insufficiency (chronic) (peripheral); E11.51 Type 2 diabetes mellitus with diabetic peripheral angiopathy without gangrene; E11.40 Type 2 diabetes mellitus with diabetic neuropathy, unspecified; E11.69 Type 2 diabetes mellitus with other specified complication; M46.28 Osteomyelitis of vertebra, sacral and sacrococcygeal region; M48.00 Spinal stenosis, site unspecified; R60.0 Localized edema; N31.9 Neuromuscular dysfunction of bladder, unspecified; G82.20 Paraplegia, unspecified; M85.80 Other specified disorders of bone density and structure, unspecified site; N40.0 Benign prostatic hyperplasia without lower urinary tract symptoms; E11.36 Type 2 diabetes mellitus with diabetic cataract; E78.5 Hyperlipidemia, unspecified; I11.0 Hypertensive heart disease with heart failure; I50.9 Heart failure, unspecified; D63.8 Anemia in other chronic diseases classified elsewhere; I48.91 Unspecified atrial fibrillation; M06.9 Rheumatoid arthritis, unspecified; F33.8 Other recurrent depressive disorders; F41.9 Anxiety disorder, unspecified; Z86.73 Personal history of transient ischemic attack (TIA), and cerebral infarction without residual deficits; Z86.14 Personal history of Methicillin resistant Staphylococcus aureus infection; Z86.718 Personal history of other venous thrombosis and embolism; Z79.01 Long term (current) use of anticoagulants; Z99.81 Dependence on supplemental oxygen; Z79.899 Other long term (current) drug therapy; X58.XXXD Exposure to other specified factors, subsequent encounter ==

== ENCOUNTER → 2021-02-01 | Outpatient (CLI) | payer OTHER | LOC: HYPER 12:01 | PROVIDERS: ATTEND Emergency Medicine | DX: S90.414D Abrasion, right lesser toe(s), subsequent encounter (principal); E11.621 Type 2 diabetes mellitus with foot ulcer; L97.512 Non-pressure chronic ulcer of other part of right foot with fat layer exposed; I87.2 Venous insufficiency (chronic) (peripheral); E11.51 Type 2 diabetes mellitus with diabetic peripheral angiopathy without gangrene; E11.40 Type 2 diabetes mellitus with diabetic neuropathy, unspecified; E11.69 Type 2 diabetes mellitus with other specified complication; M46.28 Osteomyelitis of vertebra, sacral and sacrococcygeal region; M48.00 Spinal stenosis, site unspecified; R60.0 Localized edema; N31.9 Neuromuscular dysfunction of bladder, unspecified; G82.20 Paraplegia, unspecified; M85.80 Other specified disorders of bone density and structure, unspecified site; N40.0 Benign prostatic hyperplasia without lower urinary tract symptoms; E11.36 Type 2 diabetes mellitus with diabetic cataract; E78.5 Hyperlipidemia, unspecified; I11.0 Hypertensive heart disease with heart failure; I50.9 Heart failure, unspecified; D63.8 Anemia in other chronic diseases classified elsewhere; I48.91 Unspecified atrial fibrillation; M06.9 Rheumatoid arthritis, unspecified; F33.8 Other recurrent depressive disorders; F41.9 Anxiety disorder, unspecified; Z86.73 Personal history of transient ischemic attack (TIA), and cerebral infarction without residual deficits; Z86.14 Personal history of Methicillin resistant Staphylococcus aureus infection; Z86.718 Personal history of other venous thrombosis and embolism; Z79.01 Long term (current) use of anticoagulants; Z99.81 Dependence on supplemental oxygen; X58.XXXD Exposure to other specified factors, subsequent encounter ==

== ENCOUNTER → 2021-03-02 | Outpatient (CLI) | payer OTHER | LOC: HYPER 07:54 | PROVIDERS: ATTEND Emergency Medicine | DX: S90.414D Abrasion, right lesser toe(s), subsequent encounter (principal); E11.621 Type 2 diabetes mellitus with foot ulcer; L97.512 Non-pressure chronic ulcer of other part of right foot with fat layer exposed; I87.2 Venous insufficiency (chronic) (peripheral); E11.51 Type 2 diabetes mellitus with diabetic peripheral angiopathy without gangrene; E11.40 Type 2 diabetes mellitus with diabetic neuropathy, unspecified; E11.69 Type 2 diabetes mellitus with other specified complication; M46.28 Osteomyelitis of vertebra, sacral and sacrococcygeal region; E11.36 Type 2 diabetes mellitus with diabetic cataract; M48.00 Spinal stenosis, site unspecified; R60.0 Localized edema; N31.9 Neuromuscular dysfunction of bladder, unspecified; G82.20 Paraplegia, unspecified; M85.80 Other specified disorders of bone density and structure, unspecified site; N40.0 Benign prostatic hyperplasia without lower urinary tract symptoms; E78.5 Hyperlipidemia, unspecified; I11.0 Hypertensive heart disease with heart failure; I50.9 Heart failure, unspecified; D63.8 Anemia in other chronic diseases classified elsewhere; I48.91 Unspecified atrial fibrillation; M06.9 Rheumatoid arthritis, unspecified; F33.8 Other recurrent depressive disorders; F41.9 Anxiety disorder, unspecified; Z86.73 Personal history of transient ischemic attack (TIA), and cerebral infarction without residual deficits; Z86.14 Personal history of Methicillin resistant Staphylococcus aureus infection; Z86.718 Personal history of other venous thrombosis and embolism; Z79.01 Long term (current) use of anticoagulants; Z99.81 Dependence on supplemental oxygen; X58.XXXD Exposure to other specified factors, subsequent encounter ==

== ENCOUNTER → 2021-06-05 | Outpatient (CLI) | payer OTHER | LOC: HYPER 09:05 | PROVIDERS: ATTEND Emergency Medicine | DX: S90.414D Abrasion, right lesser toe(s), subsequent encounter (principal); E11.621 Type 2 diabetes mellitus with foot ulcer; L97.512 Non-pressure chronic ulcer of other part of right foot with fat layer exposed; E11.622 Type 2 diabetes mellitus with other skin ulcer; L89.154 Pressure ulcer of sacral region, stage 4; L98.491 Non-pressure chronic ulcer of skin of other sites limited to breakdown of skin; I87.2 Venous insufficiency (chronic) (peripheral); E11.51 Type 2 diabetes mellitus with diabetic peripheral angiopathy without gangrene; E11.40 Type 2 diabetes mellitus with diabetic neuropathy, unspecified; E11.69 Type 2 diabetes mellitus with other specified complication; M46.28 Osteomyelitis of vertebra, sacral and sacrococcygeal region; E11.36 Type 2 diabetes mellitus with diabetic cataract; H26.9 Unspecified cataract; M48.00 Spinal stenosis, site unspecified; R60.0 Localized edema; N31.9 Neuromuscular dysfunction of bladder, unspecified; G82.20 Paraplegia, unspecified; M85.80 Other specified disorders of bone density and structure, unspecified site; N40.0 Benign prostatic hyperplasia without lower urinary tract symptoms; E78.5 Hyperlipidemia, unspecified; I11.0 Hypertensive heart disease with heart failure; I50.9 Heart failure, unspecified; D63.8 Anemia in other chronic diseases classified elsewhere; I48.91 Unspecified atrial fibrillation; M06.9 Rheumatoid arthritis, unspecified; F33.8 Other recurrent depressive disorders; F41.9 Anxiety disorder, unspecified; Z86.73 Personal history of transient ischemic attack (TIA), and cerebral infarction without residual deficits; Z86.14 Personal history of Methicillin resistant Staphylococcus aureus infection; Z86.718 Personal history of other venous thrombosis and embolism; Z79.01 Long term (current) use of anticoagulants; Z99.81 Dependence on supplemental oxygen; X58.XXXD Exposure to other specified factors, subsequent encounter ==

== ENCOUNTER → 2021-08-23 | Outpatient (CLI) | payer OTHER | LOC: SJCVCIMAG 14:56 | PROVIDERS: ATTEND Nuclear Medicine Nuclear Cardiology | DX: I70.203 Unspecified atherosclerosis of native arteries of extremities, bilateral legs (principal); I73.9 Peripheral vascular disease, unspecified; I77.9 Disorder of arteries and arterioles, unspecified; I87.2 Venous insufficiency (chronic) (peripheral); I25.10 Atherosclerotic heart disease of native coronary artery without angina pectoris; I11.0 Hypertensive heart disease with heart failure; I50.9 Heart failure, unspecified; G47.33 Obstructive sleep apnea (adult) (pediatric); E78.00 Pure hypercholesterolemia, unspecified; Z88.8 Allergy status to other drugs, medicaments and biological substances; Z79.899 Other long term (current) drug therapy ==

== ENCOUNTER → 2021-08-23 | Outpatient (CLI) | payer OTHER | LOC: HYPER 13:03 | PROVIDERS: ATTEND Emergency Medicine | DX: E11.621 Type 2 diabetes mellitus with foot ulcer (principal); L89.893 Pressure ulcer of other site, stage 3; L97.512 Non-pressure chronic ulcer of other part of right foot with fat layer exposed; E11.622 Type 2 diabetes mellitus with other skin ulcer; L97.312 Non-pressure chronic ulcer of right ankle with fat layer exposed; S91.001A Unspecified open wound, right ankle, initial encounter; S90.414D Abrasion, right lesser toe(s), subsequent encounter; I87.2 Venous insufficiency (chronic) (peripheral); E11.51 Type 2 diabetes mellitus with diabetic peripheral angiopathy without gangrene; E11.69 Type 2 diabetes mellitus with other specified complication; M46.28 Osteomyelitis of vertebra, sacral and sacrococcygeal region; M48.00 Spinal stenosis, site unspecified; R60.0 Localized edema; G82.20 Paraplegia, unspecified; E11.40 Type 2 diabetes mellitus with diabetic neuropathy, unspecified; N31.9 Neuromuscular dysfunction of bladder, unspecified; M19.90 Unspecified osteoarthritis, unspecified site; N40.0 Benign prostatic hyperplasia without lower urinary tract symptoms; E11.36 Type 2 diabetes mellitus with diabetic cataract; H26.9 Unspecified cataract; E78.5 Hyperlipidemia, unspecified; I11.0 Hypertensive heart disease with heart failure; I50.9 Heart failure, unspecified; D63.8 Anemia in other chronic diseases classified elsewhere; I48.91 Unspecified atrial fibrillation; M06.9 Rheumatoid arthritis, unspecified; F33.9 Major depressive disorder, recurrent, unspecified; F41.9 Anxiety disorder, unspecified; Z86.73 Personal history of transient ischemic attack (TIA), and cerebral infarction without residual deficits; Z79.01 Long term (current) use of anticoagulants; Z79.899 Other long term (current) drug therapy; Z99.81 Dependence on supplemental oxygen; Z86.14 Personal history of Methicillin resistant Staphylococcus aureus infection; Z86.718 Personal history of other venous thrombosis and embolism; X58.XXXA Exposure to other specified factors, initial encounter; X58.XXXD Exposure to other specified factors, subsequent encounter; Y93.89 Activity, other specified; Y92.89 Other specified places as the place of occurrence of the external cause; Y99.8 Other external cause status ==

== ENCOUNTER → 2021-08-29 | Outpatient (CLI) | payer OTHER | LOC: HYPER 14:19 | PROVIDERS: ATTEND Emergency Medicine | DX: E11.621 Type 2 diabetes mellitus with foot ulcer (principal); L89.893 Pressure ulcer of other site, stage 3; L97.512 Non-pressure chronic ulcer of other part of right foot with fat layer exposed; E11.622 Type 2 diabetes mellitus with other skin ulcer; L97.312 Non-pressure chronic ulcer of right ankle with fat layer exposed; S91.001D Unspecified open wound, right ankle, subsequent encounter; S90.414D Abrasion, right lesser toe(s), subsequent encounter; I87.2 Venous insufficiency (chronic) (peripheral); E11.51 Type 2 diabetes mellitus with diabetic peripheral angiopathy without gangrene; E11.69 Type 2 diabetes mellitus with other specified complication; M46.28 Osteomyelitis of vertebra, sacral and sacrococcygeal region; M48.00 Spinal stenosis, site unspecified; R60.0 Localized edema; G82.20 Paraplegia, unspecified; E11.40 Type 2 diabetes mellitus with diabetic neuropathy, unspecified; N31.9 Neuromuscular dysfunction of bladder, unspecified; M19.90 Unspecified osteoarthritis, unspecified site; N40.0 Benign prostatic hyperplasia without lower urinary tract symptoms; E11.36 Type 2 diabetes mellitus with diabetic cataract; H26.9 Unspecified cataract; E78.5 Hyperlipidemia, unspecified; I11.0 Hypertensive heart disease with heart failure; I50.9 Heart failure, unspecified; D63.8 Anemia in other chronic diseases classified elsewhere; I48.91 Unspecified atrial fibrillation; M06.9 Rheumatoid arthritis, unspecified; F33.9 Major depressive disorder, recurrent, unspecified; F41.9 Anxiety disorder, unspecified; Z86.73 Personal history of transient ischemic attack (TIA), and cerebral infarction without residual deficits; Z79.01 Long term (current) use of anticoagulants; Z99.81 Dependence on supplemental oxygen; Z86.14 Personal history of Methicillin resistant Staphylococcus aureus infection; Z86.718 Personal history of other venous thrombosis and embolism; X58.XXXD Exposure to other specified factors, subsequent encounter ==

== ENCOUNTER → 2021-09-14 | Outpatient (CLI) | payer OTHER | LOC: HYPER 10:09 | PROVIDERS: ATTEND Emergency Medicine | DX: E11.622 Type 2 diabetes mellitus with other skin ulcer (principal); L97.312 Non-pressure chronic ulcer of right ankle with fat layer exposed; E11.621 Type 2 diabetes mellitus with foot ulcer; L89.893 Pressure ulcer of other site, stage 3; L97.511 Non-pressure chronic ulcer of other part of right foot limited to breakdown of skin; S90.414D Abrasion, right lesser toe(s), subsequent encounter; S91.001D Unspecified open wound, right ankle, subsequent encounter; I87.2 Venous insufficiency (chronic) (peripheral); E11.51 Type 2 diabetes mellitus with diabetic peripheral angiopathy without gangrene; E11.40 Type 2 diabetes mellitus with diabetic neuropathy, unspecified; E11.69 Type 2 diabetes mellitus with other specified complication; M46.28 Osteomyelitis of vertebra, sacral and sacrococcygeal region; M48.00 Spinal stenosis, site unspecified; R60.0 Localized edema; G82.20 Paraplegia, unspecified; M85.80 Other specified disorders of bone density and structure, unspecified site; N31.9 Neuromuscular dysfunction of bladder, unspecified; M19.90 Unspecified osteoarthritis, unspecified site; N40.0 Benign prostatic hyperplasia without lower urinary tract symptoms; E11.36 Type 2 diabetes mellitus with diabetic cataract; H26.9 Unspecified cataract; E78.5 Hyperlipidemia, unspecified; I11.0 Hypertensive heart disease with heart failure; I50.9 Heart failure, unspecified; D63.8 Anemia in other chronic diseases classified elsewhere; I48.91 Unspecified atrial fibrillation; M06.9 Rheumatoid arthritis, unspecified; F33.8 Other recurrent depressive disorders; F41.9 Anxiety disorder, unspecified; Z86.718 Personal history of other venous thrombosis and embolism; Z79.899 Other long term (current) drug therapy; Z86.73 Personal history of transient ischemic attack (TIA), and cerebral infarction without residual deficits; Z79.82 Long term (current) use of aspirin; Z99.81 Dependence on supplemental oxygen; Z86.14 Personal history of Methicillin resistant Staphylococcus aureus infection; Z79.01 Long term (current) use of anticoagulants; X58.XXXD Exposure to other specified factors, subsequent encounter ==

== ENCOUNTER → 2021-10-02 | Outpatient (CLI) | payer OTHER | LOC: HYPER 08:47 | PROVIDERS: ATTEND Emergency Medicine | DX: E11.621 Type 2 diabetes mellitus with foot ulcer (principal); L89.893 Pressure ulcer of other site, stage 3; L97.511 Non-pressure chronic ulcer of other part of right foot limited to breakdown of skin; E11.622 Type 2 diabetes mellitus with other skin ulcer; L97.312 Non-pressure chronic ulcer of right ankle with fat layer exposed; S91.001D Unspecified open wound, right ankle, subsequent encounter; S90.414D Abrasion, right lesser toe(s), subsequent encounter; I87.2 Venous insufficiency (chronic) (peripheral); E11.51 Type 2 diabetes mellitus with diabetic peripheral angiopathy without gangrene; E11.40 Type 2 diabetes mellitus with diabetic neuropathy, unspecified; E11.69 Type 2 diabetes mellitus with other specified complication; M46.28 Osteomyelitis of vertebra, sacral and sacrococcygeal region; M48.00 Spinal stenosis, site unspecified; R60.0 Localized edema; G82.20 Paraplegia, unspecified; N31.9 Neuromuscular dysfunction of bladder, unspecified; N40.0 Benign prostatic hyperplasia without lower urinary tract symptoms; E11.36 Type 2 diabetes mellitus with diabetic cataract; H26.9 Unspecified cataract; E78.5 Hyperlipidemia, unspecified; I11.0 Hypertensive heart disease with heart failure; I50.9 Heart failure, unspecified; D63.8 Anemia in other chronic diseases classified elsewhere; I48.91 Unspecified atrial fibrillation; M06.9 Rheumatoid arthritis, unspecified; F33.8 Other recurrent depressive disorders; F41.9 Anxiety disorder, unspecified; Z86.73 Personal history of transient ischemic attack (TIA), and cerebral infarction without residual deficits; Z86.718 Personal history of other venous thrombosis and embolism; Z86.14 Personal history of Methicillin resistant Staphylococcus aureus infection; Z79.01 Long term (current) use of anticoagulants; Z79.899 Other long term (current) drug therapy; Z99.81 Dependence on supplemental oxygen; X58.XXXD Exposure to other specified factors, subsequent encounter ==

== ENCOUNTER → 2021-10-26 | Outpatient (CLI) | payer OTHER | LOC: HYPER 12:52 | PROVIDERS: ATTEND Emergency Medicine | DX: E11.621 Type 2 diabetes mellitus with foot ulcer (principal); L89.893 Pressure ulcer of other site, stage 3; I70.235 Atherosclerosis of native arteries of right leg with ulceration of other part of foot; L97.511 Non-pressure chronic ulcer of other part of right foot limited to breakdown of skin; E11.622 Type 2 diabetes mellitus with other skin ulcer; L97.312 Non-pressure chronic ulcer of right ankle with fat layer exposed; S91.001D Unspecified open wound, right ankle, subsequent encounter; S90.414D Abrasion, right lesser toe(s), subsequent encounter; I87.2 Venous insufficiency (chronic) (peripheral); E11.51 Type 2 diabetes mellitus with diabetic peripheral angiopathy without gangrene; E11.40 Type 2 diabetes mellitus with diabetic neuropathy, unspecified; E11.69 Type 2 diabetes mellitus with other specified complication; M46.28 Osteomyelitis of vertebra, sacral and sacrococcygeal region; M48.00 Spinal stenosis, site unspecified; R60.0 Localized edema; G82.20 Paraplegia, unspecified; M31.9 Necrotizing vasculopathy, unspecified; N40.0 Benign prostatic hyperplasia without lower urinary tract symptoms; E11.36 Type 2 diabetes mellitus with diabetic cataract; H26.9 Unspecified cataract; E78.5 Hyperlipidemia, unspecified; I11.0 Hypertensive heart disease with heart failure; I50.9 Heart failure, unspecified; D63.8 Anemia in other chronic diseases classified elsewhere; I48.91 Unspecified atrial fibrillation; M06.9 Rheumatoid arthritis, unspecified; F33.8 Other recurrent depressive disorders; F41.9 Anxiety disorder, unspecified; Z86.73 Personal history of transient ischemic attack (TIA), and cerebral infarction without residual deficits; Z86.718 Personal history of other venous thrombosis and embolism; Z86.14 Personal history of Methicillin resistant Staphylococcus aureus infection; Z79.01 Long term (current) use of anticoagulants; Z99.81 Dependence on supplemental oxygen; X58.XXXD Exposure to other specified factors, subsequent encounter ==

== ENCOUNTER → 2021-11-09 | Outpatient (CLI) | payer OTHER | LOC: HYPER 13:22 | PROVIDERS: ATTEND Emergency Medicine | DX: E11.621 Type 2 diabetes mellitus with foot ulcer (principal); L89.893 Pressure ulcer of other site, stage 3; I70.235 Atherosclerosis of native arteries of right leg with ulceration of other part of foot; L97.511 Non-pressure chronic ulcer of other part of right foot limited to breakdown of skin; E11.622 Type 2 diabetes mellitus with other skin ulcer; L97.312 Non-pressure chronic ulcer of right ankle with fat layer exposed; S91.001D Unspecified open wound, right ankle, subsequent encounter; S90.414D Abrasion, right lesser toe(s), subsequent encounter; L84 Corns and callosities; I87.2 Venous insufficiency (chronic) (peripheral); E11.51 Type 2 diabetes mellitus with diabetic peripheral angiopathy without gangrene; E11.40 Type 2 diabetes mellitus with diabetic neuropathy, unspecified; E11.69 Type 2 diabetes mellitus with other specified complication; M46.28 Osteomyelitis of vertebra, sacral and sacrococcygeal region; M48.00 Spinal stenosis, site unspecified; R60.0 Localized edema; G82.20 Paraplegia, unspecified; M31.9 Necrotizing vasculopathy, unspecified; N40.0 Benign prostatic hyperplasia without lower urinary tract symptoms; E11.36 Type 2 diabetes mellitus with diabetic cataract; H26.9 Unspecified cataract; E78.5 Hyperlipidemia, unspecified; I11.0 Hypertensive heart disease with heart failure; I50.9 Heart failure, unspecified; D63.8 Anemia in other chronic diseases classified elsewhere; I48.91 Unspecified atrial fibrillation; M06.9 Rheumatoid arthritis, unspecified; F33.8 Other recurrent depressive disorders; F41.9 Anxiety disorder, unspecified; Z86.73 Personal history of transient ischemic attack (TIA), and cerebral infarction without residual deficits; Z86.718 Personal history of other venous thrombosis and embolism; Z86.14 Personal history of Methicillin resistant Staphylococcus aureus infection; Z79.01 Long term (current) use of anticoagulants; Z99.81 Dependence on supplemental oxygen; X58.XXXD Exposure to other specified factors, subsequent encounter ==

== ENCOUNTER → 2021-11-23 | Outpatient (CLI) | payer OTHER | LOC: HYPER 10:54 | PROVIDERS: ATTEND Emergency Medicine | DX: E11.621 Type 2 diabetes mellitus with foot ulcer (principal); L89.893 Pressure ulcer of other site, stage 3; I70.235 Atherosclerosis of native arteries of right leg with ulceration of other part of foot; L97.512 Non-pressure chronic ulcer of other part of right foot with fat layer exposed; E11.622 Type 2 diabetes mellitus with other skin ulcer; L97.312 Non-pressure chronic ulcer of right ankle with fat layer exposed; S91.001D Unspecified open wound, right ankle, subsequent encounter; S90.414D Abrasion, right lesser toe(s), subsequent encounter; L84 Corns and callosities; I87.2 Venous insufficiency (chronic) (peripheral); E11.51 Type 2 diabetes mellitus with diabetic peripheral angiopathy without gangrene; E11.40 Type 2 diabetes mellitus with diabetic neuropathy, unspecified; E11.69 Type 2 diabetes mellitus with other specified complication; M46.28 Osteomyelitis of vertebra, sacral and sacrococcygeal region; M48.00 Spinal stenosis, site unspecified; R60.0 Localized edema; G82.20 Paraplegia, unspecified; M31.9 Necrotizing vasculopathy, unspecified; N40.0 Benign prostatic hyperplasia without lower urinary tract symptoms; E11.36 Type 2 diabetes mellitus with diabetic cataract; H26.9 Unspecified cataract; E78.5 Hyperlipidemia, unspecified; I11.0 Hypertensive heart disease with heart failure; I50.9 Heart failure, unspecified; D63.8 Anemia in other chronic diseases classified elsewhere; I48.91 Unspecified atrial fibrillation; M06.9 Rheumatoid arthritis, unspecified; F33.8 Other recurrent depressive disorders; F41.9 Anxiety disorder, unspecified; Z86.73 Personal history of transient ischemic attack (TIA), and cerebral infarction without residual deficits; Z86.718 Personal history of other venous thrombosis and embolism; Z86.14 Personal history of Methicillin resistant Staphylococcus aureus infection; Z79.01 Long term (current) use of anticoagulants; Z99.81 Dependence on supplemental oxygen; X58.XXXD Exposure to other specified factors, subsequent encounter ==

== ENCOUNTER → 2021-12-07 | Outpatient (CLI) | payer OTHER | LOC: HYPER 09:31 | PROVIDERS: ATTEND Emergency Medicine | DX: E11.621 Type 2 diabetes mellitus with foot ulcer (principal); L89.893 Pressure ulcer of other site, stage 3; I70.235 Atherosclerosis of native arteries of right leg with ulceration of other part of foot; L97.512 Non-pressure chronic ulcer of other part of right foot with fat layer exposed; E11.622 Type 2 diabetes mellitus with other skin ulcer; L97.312 Non-pressure chronic ulcer of right ankle with fat layer exposed; S91.001D Unspecified open wound, right ankle, subsequent encounter; S90.414D Abrasion, right lesser toe(s), subsequent encounter; L84 Corns and callosities; I87.2 Venous insufficiency (chronic) (peripheral); E11.51 Type 2 diabetes mellitus with diabetic peripheral angiopathy without gangrene; E11.40 Type 2 diabetes mellitus with diabetic neuropathy, unspecified; E11.69 Type 2 diabetes mellitus with other specified complication; M46.28 Osteomyelitis of vertebra, sacral and sacrococcygeal region; M48.00 Spinal stenosis, site unspecified; R60.0 Localized edema; G82.20 Paraplegia, unspecified; M31.9 Necrotizing vasculopathy, unspecified; N40.0 Benign prostatic hyperplasia without lower urinary tract symptoms; E11.36 Type 2 diabetes mellitus with diabetic cataract; H26.9 Unspecified cataract; E78.5 Hyperlipidemia, unspecified; I11.0 Hypertensive heart disease with heart failure; I50.9 Heart failure, unspecified; D63.8 Anemia in other chronic diseases classified elsewhere; I48.91 Unspecified atrial fibrillation; M06.9 Rheumatoid arthritis, unspecified; F33.8 Other recurrent depressive disorders; F41.9 Anxiety disorder, unspecified; Z86.73 Personal history of transient ischemic attack (TIA), and cerebral infarction without residual deficits; Z86.718 Personal history of other venous thrombosis and embolism; Z86.14 Personal history of Methicillin resistant Staphylococcus aureus infection; Z79.01 Long term (current) use of anticoagulants; X58.XXXD Exposure to other specified factors, subsequent encounter ==